=== PATIENT | female | born 1980 | race African-American/Black ===

== ENCOUNTER → 2016-09-30 | Outpatient (REF) | payer OTHER ==
[~2016-09-30] MED LIST: MIRA3350 PO; PNV-CAP5 PO; PREZ1TAB PO; TIVI1TAB PO; TRUVTAB3 PO
[2016-09-30 14:16] LABS: ALBUMIN 3.9 GM/DL (3.2-5.2); ALBUMIN/GLOBULIN RATIO 1.03 (1.00-1.93); ALKALINE PHOSPHATASE 59 U/L (45-117); ALT/SGPT 23 U/L (12-78); ANION GAP 10 MEQ/L (8-16); AST/SGOT 17 U/L (15-37); BILIRUBIN,TOTAL 0.5 MG/DL (0.2-1.0); BLOOD UREA NITROGEN 13 MG/DL (7-18); CALCIUM LEVEL 8.7 MG/DL (8.5-10.1); CARBON DIOXIDE LEVEL 28 MEQ/L (21-32); CHLORIDE LEVEL 102 MEQ/L (98-107); CHOLESTEROL LEVEL 193 MG/DL (<200); CREATININE FOR GFR 0.76 MG/DL (0.55-1.02); GLOMERULAR FILTRATION RATE > 60.0 (>60); GLUCOSE, FASTING 84 MG/DL (70-105); POTASSIUM SERUM 3.8 MEQ/L (3.5-5.1); SODIUM LEVEL 140 MEQ/L (136-145); TOTAL PROTEIN 7.7 GM/DL (6.4-8.2); TRIGLYCERIDES LEVEL 59 MG/DL (<150)
[2016-10-02 00:06] LABS: %CD3+CD4+CD8+ 0.8 % (Not Estab.); %CD3+CD4+CD8- 35.7 % (Not Estab.); %CD3+CD4-CD8+ 43.9 % (Not Estab.); %CD3+CD4-CD8- 1.4 % (Not Estab.); ABS CD3+CD4+CD8+ 14 /uL (Not Estab.); ABS CD3+CD4+CD8- 607 /uL (Not Estab.); ABS CD3+CD4-CD8+ 746 /uL (Not Estab.); ABS CD3+CD4-CD8- 24 /uL (Not Estab.); CD4/CD8 NYSDOH RATIO 0.81 (Not Estab.); Eosinophils 1 % (.); HCT 35.9 % (34.0-46.6); HGB 12.2 g/dL (11.1-15.9); Monocytes 8 % (.); Neutrophils 44 % (.); WBC 3.7 x10E3/uL (3.4-10.8)
== END | disposition home or self-care (01) ==
LOC: M SFHCPLAZ 10:57
PROVIDERS: ATTEND Internal Medicine Infectious Disease
DX: B20 Human immunodeficiency virus [HIV] disease (principal); Z11.3 Encounter for screening for infections with a predominantly sexual mode of transmission; Z13.220 Encounter for screening for lipoid disorders

== ENCOUNTER → 2016-10-09 | Outpatient (CLI) | payer OTHER ==
--- NOTE | 2016-10-09 13:50 | REP ---
MAXILLOFACIAL CT WITHOUT CONTRAST: HISTORY: Chronic runny nose. Moderate mucosal thickening is present in the right maxillary sinus. Mild mucosal thickening is present in the right ethmoid sinus. Minimal mucosal thickening is present in the left ethmoid and left maxillary sinuses. The remaining sinuses are clear. Mucosal thickening involves osteomeatal units. The middle and inferior nasal turbinates are partially paradoxical. The left middle nasal turbinate is hypoplastic. There is mild deviation of the nasal septum to the left. A spur is present arising from the left side of the nasal septum. This spur abuts the left middle nasal turbinate. The cribriform plate and medial john of the orbits and optic canals are intact. The carotid canals form a segment of the posterolateral john of the sphenoid sinus. The sphenoid sinus septa insert into the internal carotid canal john. IMPRESSION: Sinus mucosal thickening as described above. Signed by Michael Claudio MD 10/09/2016 02:12 P
== END | disposition home or self-care (01) ==
LOC: M RAD 11:33
PROVIDERS: ATTEND Family Medicine
DX: R93.0 Abnormal findings on diagnostic imaging of skull and head, not elsewhere classified (principal); R09.89 Other specified symptoms and signs involving the circulatory and respiratory systems

== ENCOUNTER 2017-03-04 23:44 | Emergency (ER) | payer OTHER ==
[~2017-03-04] VITALS: Ht 167.6 cm; Wt 81.8 kg
[~2017-03-04 23:44] MED LIST changes: +TRUVTAB PO; -TRUVTAB3 PO
[2017-03-05] MEDS ORDERED: NAPR500T PO (03:23)
[2017-03-05] MEDS: KETOROLAC 60 MG/2 ML VIAL (J1885) IM ONE (03:35)
[2017-03-05 03:39] VITALS: BP 123/77
--- NOTE | 2017-03-05 07:41 | REP ---
Clinical: Trauma . Technique: AP, lateral, bilateral oblique views right and left ankle . Findings: No acute fracture or dislocation. Skeletal structures and joint spaces are intact and normal. Ankle mortise appears stable. No subcutaneous emphysema or radiodense foreign body. Impression: Normal bilateral ankle radiograph series. Signed by Bony Schroeder MD 03/05/2017 07:33 A
--- NOTE | 2017-03-05 07:43 | REP ---
Clinical: Trauma. Technique: AP, lateral, bilateral oblique views left wrist . Findings: The carpal bones, surrounding osseous structures, soft tissues, and joint spaces are normal. There is no evidence for acute fracture or dislocation. No subcutaneous emphysema or radiodense foreign body. Impression: No acute fracture or dislocation Signed by Bony Schroeder MD 03/05/2017 07:34 A
== END 2017-03-05 04:00 | disposition home or self-care (01) ==
LOC: M ED 03-05 00:58
DX: S93.401A Sprain of unspecified ligament of right ankle, initial encounter (principal); M25.532 Pain in left wrist; W10.9XXA Fall (on) (from) unspecified stairs and steps, initial encounter; Y92.019 Unspecified place in single-family (private) house as the place of occurrence of the external cause; Y93.01 Activity, walking, marching and hiking; Y99.8 Other external cause status; Z79.899 Other long term (current) drug therapy
CPT/HCPCS: 73110; 73610; 96372; 99283; J1885

== ENCOUNTER → 2017-07-21 | Outpatient (REF) | payer OTHER ==
[~2017-07-21] MED LIST changes: +NAPR500T PO
[2017-07-21 14:43] LABS: ALBUMIN 3.8 GM/DL (3.2-5.2); ALBUMIN/GLOBULIN RATIO 0.97 (1.00-1.93); ALKALINE PHOSPHATASE 49 U/L (45-117); ALT/SGPT 17 U/L (12-78); ANION GAP 7 MEQ/L (8-16); AST/SGOT 14 U/L (7-37); BILIRUBIN,TOTAL 0.4 MG/DL (0.2-1.0); BLOOD UREA NITROGEN 7 MG/DL (7-18); CALCIUM LEVEL 8.7 MG/DL (8.5-10.1); CARBON DIOXIDE LEVEL 27 MEQ/L (21-32); CHLORIDE LEVEL 106 MEQ/L (98-107); CREATININE FOR GFR 0.55 MG/DL (0.55-1.02); GLOMERULAR FILTRATION RATE > 60.0 (>60); GLUCOSE, FASTING 103 MG/DL (70-105); POTASSIUM SERUM 3.8 MEQ/L (3.5-5.1); SODIUM LEVEL 140 MEQ/L (136-145); TOTAL PROTEIN 7.7 GM/DL (6.4-8.2)
[2017-07-22 14:14] LABS: Eosinophils 3 % (Not Estab.); HCT 36.1 % (34.0-46.6); HGB 12.1 g/dL (11.1-15.9); Monocytes 9 % (Not Estab.); Neutrophils 44 % (Not Estab.); WBC 3.7 x10E3/uL (3.4-10.8)
== END ==
LOC: M SFHCPLAZ 10:33
PROVIDERS: ATTEND Internal Medicine Infectious Disease
DX: B20 Human immunodeficiency virus [HIV] disease (principal)

== ENCOUNTER → 2017-11-18 | Outpatient (REF) | payer OTHER ==
[2017-11-18 13:47] LABS: ALBUMIN 3.9 GM/DL (3.2-5.2); ALBUMIN/GLOBULIN RATIO 1.03 (1.00-1.93); ALKALINE PHOSPHATASE 57 U/L (45-117); ALT/SGPT 16 U/L (12-78); ANION GAP 7 MEQ/L (8-16); AST/SGOT 14 U/L (7-37); BILIRUBIN,TOTAL 0.5 MG/DL (0.2-1.0); BLOOD UREA NITROGEN 17 MG/DL (7-18); CALCIUM LEVEL 8.8 MG/DL (8.5-10.1); CARBON DIOXIDE LEVEL 28 MEQ/L (21-32); CHLORIDE LEVEL 104 MEQ/L (98-107); CHOLESTEROL LEVEL 210 MG/DL (<200); CHOLESTEROL RISK RATIO 3.281 (<5); CREATININE FOR GFR 0.79 MG/DL (0.55-1.30); GLOMERULAR FILTRATION RATE > 60.0 (>60); GLUCOSE, FASTING 101 MG/DL (70-100); HDL CHOLESTEROL 64 MG/DL (>40); LDL CHOLESTEROL 132.6 MG/DL (<100); NON-HDL-C 146 MG/DL; POTASSIUM SERUM 4.1 MEQ/L (3.5-5.1); SODIUM LEVEL 139 MEQ/L (136-145); TOTAL PROTEIN 7.7 GM/DL (6.4-8.2); TRIGLYCERIDES LEVEL 67 MG/DL (<150)
[2017-11-18 18:18] LABS: APPEARANCE, URINE CLEAR (CLEAR); BACTERIA, URINE AUTO NEGATIVE (NEGATIVE); BILIRUBIN, URINE AUTO NEGATIVE (NEGATIVE); BLOOD, URINE BLOOD NEGATIVE (NEGATIVE); COLOR, URINE YELLOW (YELLOW); GLUCOSE, URINE (UA) AUTO NEGATIVE (NEGATIVE); KETONE, URINE AUTO NEGATIVE (NEGATIVE); LEUKOCYTE ESTERASE, URINE AUTO NEGATIVE (NEGATIVE); MUCUS, URINE SMALL (NEGATIVE); NITRITE, URINE AUTO NEGATIVE (NEGATIVE); PROTEIN, URINE AUTO NEGATIVE (NEGATIVE); RBC, URINE AUTO 1 /HPF (0-3); SPECIFIC GRAVITY URINE AUTO 1.024 (1.002-1.035); SQUAMOUS EPITHELIAL CELL UR AU 1 /HPF (0-6); UROBILINOGEN, URINE AUTO 0.2 mg/dL (0.0-2.0); WBC, URINE AUTO 2 /HPF (0-3)
[2017-11-18 19:34] LABS: CHLAMYDIA DNA AMPLIFICATION NEGATIVE (NEGATIVE); GC DNA AMPLIFICATION NEGATIVE (NEGATIVE)
[2017-11-19 10:43] LABS: HEPATITIS B SURFACE ANTIBODY NEGATIVE (POSITIVE)
== END ==
LOC: M SFHCPLAZ 11:11
DX: B20 Human immunodeficiency virus [HIV] disease (principal); Z11.3 Encounter for screening for infections with a predominantly sexual mode of transmission; Z13.220 Encounter for screening for lipoid disorders

== ENCOUNTER → 2018-08-11 | Outpatient (REF) | payer OTHER ==
[2018-08-11 18:55] LABS: ALBUMIN 3.9 GM/DL (3.2-5.2); ALBUMIN/GLOBULIN RATIO 0.93 (1.00-1.93); ALKALINE PHOSPHATASE 57 U/L (45-117); ALT/SGPT 20 U/L (12-78); ANION GAP 9 MEQ/L (8-16); AST/SGOT 19 U/L (7-37); BILIRUBIN,TOTAL 0.6 MG/DL (0.2-1.0); BLOOD UREA NITROGEN 13 MG/DL (7-18); CARBON DIOXIDE LEVEL 25 MEQ/L (21-32); CHLORIDE LEVEL 102 MEQ/L (98-107); CREATININE FOR GFR 0.74 MG/DL (0.55-1.30); GLOMERULAR FILTRATION RATE > 60.0 (>60); GLUCOSE, FASTING 91 MG/DL (70-100); POTASSIUM SERUM 4.1 MEQ/L (3.5-5.1); SODIUM LEVEL 136 MEQ/L (136-145); TOTAL PROTEIN 8.1 GM/DL (6.4-8.2)
[2018-08-13 14:24] LABS: % CD8 Pos Lymph 34.6 % (12.0-35.5); %CD4 Pos Lymphs 43.2 % (30.8-58.5); ABS Eosinophils 0.1 x10E3/uL (0.0-0.4); ABS Lymphs 1.6 x10E3/uL (0.7-3.1); ABS Monocytes 0.3 x10E3/uL (0.1-0.9); ABS Neutophils 2.3 x10E3/uL (1.4-7.0); Abs CD4 Helper 691 /uL (359-1519); Abs CD8 Suppres 554 /uL (109-897); CD4/CD8 Ratio 1.25 (0.92-3.72); Eosinophils 1 % (Not Estab.); HCT 37.1 % (34.0-46.6); HGB 12.4 g/dL (11.1-15.9); Immature Grans 0 % (Not Estab.); Lymphocytes 38 % (Not Estab.); MCH 30.8 pg (26.6-33.0); MCHC 33.4 g/dL (31.5-35.7); MCV 92 fL (79-97); Monocytes 7 % (Not Estab.); Neutrophils 53 % (Not Estab.); Platelets 267 x10E3/uL (150-379); RBC 4.02 x10E6/uL (3.77-5.28); RDW 12.9 % (12.3-15.4); WBC 4.3 x10E3/uL (3.4-10.8)
== END ==
LOC: M SFHCPLAZ 14:06
DX: B20 Human immunodeficiency virus [HIV] disease (principal)

== ENCOUNTER → 2018-09-15 | Outpatient (CLI) | payer OTHER ==
[~2018-09-15] MED LIST changes: +NAPR-50 PO; -NAPR500T PO
--- NOTE | 2018-09-15 17:52 | REPMRS ---
Patient History The patient states she has not had a clinical breast exam in over a year. Patient had first child at age 34. No known family history of cancer. Taking hormonal contraceptives for 3 years. Digital Woman Screen Mammo: September 15, 2018 - Exam #: [id number] Bilateral CC and MLO view(s) were taken. Technologist: Alexa Nicole, Technologist FINDINGS: There are scattered fibroglandular densities. There is no evidence of dominant mass, architectural distortion, or clustered microcalcification typical of malignancy.. Assessment: BI-RADS/ACR category 1 mammogram. Negative. Recommendation Routine screening mammogram of both breasts in 1 year (for women over age 40). This patient's Lifetime Breast Cancer RIsk is estimated at 13.6 %. This mammogram was interpreted with the aid of an FDA-approved computer-aided dectection system. Electronically Signed By: Tito Kyle MD 09/15/18 [id number]
== END ==
LOC: M WHC 14:30
PROVIDERS: ATTEND Family Medicine
DX: Z12.11 Encounter for screening for malignant neoplasm of colon (principal)

== ENCOUNTER → 2019-01-19 | Outpatient (REF) | payer OTHER ==
[~2019-01-19] MED LIST changes: +BACT800T5 PO; -NAPR-50 PO; +NAPR-837 PO
[2019-01-19 13:25] LABS: ALT/SGPT 20 U/L (12-78); BILIRUBIN,TOTAL 0.5 MG/DL (0.2-1.0); BLOOD UREA NITROGEN 10 MG/DL (7-18); CARBON DIOXIDE LEVEL 28 MEQ/L (21-32); CHLORIDE LEVEL 103 MEQ/L (98-107); CHOLESTEROL LEVEL 255 MG/DL (<200); CHOLESTEROL RISK RATIO 2.741 (<5); CREATININE FOR GFR 0.76 MG/DL (0.55-1.30); GLOMERULAR FILTRATION RATE > 60.0 (>60); GLUCOSE, FASTING 93 MG/DL (70-100); HDL CHOLESTEROL 93 MG/DL (>40); LDL CHOLESTEROL 153 MG/DL (<100); NON-HDL-C 162 MG/DL; SODIUM LEVEL 138 MEQ/L (136-145); TOTAL PROTEIN 7.3 GM/DL (6.4-8.2); TRIGLYCERIDES LEVEL 47 MG/DL (<150)
[2019-01-19 13:27] LABS: APPEARANCE, URINE CLEAR (CLEAR); BACTERIA, URINE AUTO NEGATIVE (NEGATIVE); BILIRUBIN, URINE AUTO NEGATIVE (NEGATIVE); BLOOD, URINE BLOOD NEGATIVE (NEGATIVE); COLOR, URINE YELLOW (YELLOW); GLUCOSE, URINE (UA) AUTO NEGATIVE (NEGATIVE); KETONE, URINE AUTO NEGATIVE (NEGATIVE); LEUKOCYTE ESTERASE, URINE AUTO NEGATIVE (NEGATIVE); NITRITE, URINE AUTO NEGATIVE (NEGATIVE); PROTEIN, URINE AUTO NEGATIVE (NEGATIVE); RBC, URINE AUTO 0 /HPF (0-3); SPECIFIC GRAVITY URINE AUTO 1.019 (1.002-1.035); SQUAMOUS EPITHELIAL CELL UR AU 1 /HPF (0-6); UROBILINOGEN, URINE AUTO 0.2 mg/dL (0.0-2.0); WBC, URINE AUTO 0 /HPF (0-3)
[2019-01-22 00:06] LABS: % CD8 Pos Lymph 38.1 % (12.0-35.5); %CD4 Pos Lymphs 39.2 % (30.8-58.5); ABS Lymphs 1.3 x10E3/uL (0.7-3.1); ABS Monocytes 0.3 x10E3/uL (0.1-0.9); ABS Neutophils 1.3 x10E3/uL (1.4-7.0); Abs CD4 Helper 510 /uL (359-1519); Abs CD8 Suppres 495 /uL (109-897); CD4/CD8 Ratio 1.03 (0.92-3.72); Eosinophils 1 % (Not Estab.); HCT 35.2 % (34.0-46.6); HIV-1 RNA PCR QUANT 2 LC550285 <20 copies/mL (.); Immature Grans 0 % (Not Estab.); Lymphocytes 44 % (Not Estab.); MCHC 34.1 g/dL (31.5-35.7); MCV 91 fL (79-97); Monocytes 10 % (Not Estab.); Neutrophils 45 % (Not Estab.); Platelets 204 x10E3/uL (150-450); RBC 3.87 x10E6/uL (3.77-5.28); WBC 2.9 x10E3/uL (3.4-10.8)
== END ==
LOC: M SFHCPLAZ 09:29
PROVIDERS: ATTEND Internal Medicine Infectious Disease
DX: B20 Human immunodeficiency virus [HIV] disease (principal); E78.00 Pure hypercholesterolemia, unspecified
CPT/HCPCS: 36415; 80053; 80061; 81001; 86360; 87536; G0463

== ENCOUNTER → 2019-01-28 | Outpatient (CLI) | payer OTHER ==
--- NOTE | 2019-01-28 09:56 | REP ---
MAXILLOFACIAL CT WITHOUT CONTRAST: HISTORY: Allergic sinusitis. COMPARISON: 10/09/2016 Minimal mucosal thickening is present in the right maxillary sinus. The remaining sinuses are clear. The ostiomeatal units are patent. The middle and inferior nasal turbinates are partially paradoxical. The left middle nasal turbinate hypoplastic. There is mild deviation of the nasal septum to the left. A spur is present arising from the left side of the nasal septum. The cribriform plates, medial john of the orbits and optic canals are intact. The carotid canals form a segment of the posterolateral john of the sphenoid sinus. The sphenoid sinus septa insert into the internal carotid canal john. IMPRESSION: Sinus mucosal thickening as described above. Electronically Signed by Michael Claudio MD 01/28/2019 10:03 A
== END ==
LOC: M RAD 09:20
PROVIDERS: ATTEND Internal Medicine Infectious Disease
DX: J30.9 Allergic rhinitis, unspecified (principal); R51 Headache; J32.0 Chronic maxillary sinusitis

== ENCOUNTER 2019-01-30 21:37 | Emergency (ER) | payer OTHER, SELFPAY ==
[~2019-01-30] VITALS: Ht 167.6 cm; Wt 79.1 kg
[~2019-01-30 21:37] MED LIST changes: -BACT800T5 PO
[2019-01-30] MEDS ORDERED: LIDOCAINE 1% MDV 20ML VIAL INFIL ONE (22:30)
[2019-01-30 22:35] LABS: BASO % 0.4 % (0.0-1.0); EOS # 0.1 10^3/uL (0.0-0.50); EOS % 1.5 % (0.0-3.0); HEMATOCRIT 32.3 % (36.0-47.0); LYMPH # 1.6 10^3/uL (1.5-4.5); LYMPH % 34.8 % (24.0-44.0); MEAN CORPUSCULAR HEMOGLOBIN 31.7 pg (27.0-33.0); MEAN CORPUSCULAR HGB CONC 34.1 g/dl (32.0-36.5); MEAN CORPUSCULAR VOLUME 93.1 fl (80.0-96.0); MONO # 0.4 10^3/uL (0.0-0.8); MONO % 7.8 % (0.0-5.0); NEUTROPHILS # 2.5 10^3/uL (1.8-7.7); NEUTROPHILS % 55.3 % (36.0-66.0); PLATELET COUNT, AUTOMATED 180 10^3/uL (150-450); RED BLOOD COUNT 3.47 10^6/uL (4.00-5.40); WHITE BLOOD COUNT 4.6 10^3/uL (4.0-10.0)
[2019-01-30 22:53] LABS: BLOOD UREA NITROGEN 11 MG/DL (7-18); CALCIUM LEVEL 8.8 MG/DL (8.5-10.1); CARBON DIOXIDE LEVEL 28 MEQ/L (21-32); CHLORIDE LEVEL 103 MEQ/L (98-107); GLOMERULAR FILTRATION RATE > 60.0 (>60); GLUCOSE, FASTING 103 MG/DL (70-100); POTASSIUM SERUM 3.9 MEQ/L (3.5-5.1); SODIUM LEVEL 139 MEQ/L (136-145)
[2019-01-30] MEDS ORDERED: BACT800T5 PO (23:23)
[2019-01-30] MEDS ORDERED: IBUPROFEN 800 MG TAB PO ONE (23:30)
[2019-01-30] MEDS ORDERED: BACTRIM 160MG/800MG DS TAB PO ONE (23:45)
[2019-01-30 23:53] VITALS: BP 126/68
== END 2019-01-30 23:56 | disposition home or self-care (01) ==
LOC: M ED 21:37
DX: N75.1 Abscess of Bartholin's gland (principal); B20 Human immunodeficiency virus [HIV] disease; Z79.899 Other long term (current) drug therapy

== ENCOUNTER 2019-02-24 13:45 | Emergency (ER) | payer BC, OTHER, SELFPAY ==
[~2019-02-24] VITALS: Ht 167.6 cm; Wt 81.4 kg
[~2019-02-24 13:45] MED LIST changes: +BACT800T5 PO
--- NOTE | 2019-02-24 14:39 | REP ---
Clinical: Right hip pain with recent fall. Technique: Neutral and frog lateral views of the right hip. Findings: No acute fracture dislocation. Skeletal structures, joint spaces, and surrounding soft tissues are normal for age. Impression: No acute fracture or dislocation. Electronically Signed by Bony Schroeder MD 02/24/2019 02:31 P
[2019-02-24] MEDS ORDERED: NAPR-837 PO (15:54)
[2019-02-24 15:57] VITALS: BP 125/66
== END 2019-02-24 16:00 | disposition home or self-care (01) ==
LOC: M ED 13:45
DX: S70.01XA Contusion of right hip, initial encounter (principal); W10.9XXA Fall (on) (from) unspecified stairs and steps, initial encounter; Y92.099 Unspecified place in other non-institutional residence as the place of occurrence of the external cause; Y93.9 Activity, unspecified; Y99.9 Unspecified external cause status; B20 Human immunodeficiency virus [HIV] disease; I10 Essential (primary) hypertension; Z79.899 Other long term (current) drug therapy

== ENCOUNTER → 2019-06-24 | Outpatient (REF) | payer OTHER ==
[2019-06-24 14:12] LABS: ALBUMIN 4.1 GM/DL (3.2-5.2); ALT/SGPT 20 U/L (12-78); BILIRUBIN,TOTAL 0.5 MG/DL (0.2-1.0); BLOOD UREA NITROGEN 13 MG/DL (7-18); CALCIUM LEVEL 9.4 MG/DL (8.5-10.1); CARBON DIOXIDE LEVEL 28 MEQ/L (21-32); CHLORIDE LEVEL 102 MEQ/L (98-107); CREATININE FOR GFR 0.84 MG/DL (0.55-1.30); GLOMERULAR FILTRATION RATE > 60.0 (>60); GLUCOSE, FASTING 89 MG/DL (70-100); POTASSIUM SERUM 3.8 MEQ/L (3.5-5.1); SODIUM LEVEL 137 MEQ/L (136-145); TOTAL PROTEIN 7.9 GM/DL (6.4-8.2)
[2019-06-29 00:06] LABS: % CD8 Pos Lymph 36.9 % (12.0-35.5); %CD4 Pos Lymphs 41.3 % (30.8-58.5); ABS Lymphs 1.9 x10E3/uL (0.7-3.1); ABS Monocytes 0.2 x10E3/uL (0.1-0.9); ABS Neutophils 1.3 x10E3/uL (1.4-7.0); Abs CD4 Helper 785 /uL (359-1519); Abs CD8 Suppres 701 /uL (109-897); CD4/CD8 Ratio 1.12 (0.92-3.72); Eosinophils 1 % (Not Estab.); HCT 36.5 % (34.0-46.6); HIV-1 RNA PCR QUANT 2 LC550285 50 copies/mL (.); HIV-1 RNA PCR QUANT 3 LC550285 1.699 (.); Immature Grans 0 % (Not Estab.); Lymphocytes 54 % (Not Estab.); MCH 29.6 pg (26.6-33.0); MCHC 32.9 g/dL (31.5-35.7); MCV 90 fL (79-97); Monocytes 7 % (Not Estab.); Neutrophils 37 % (Not Estab.); Platelets 273 x10E3/uL (150-450); RBC 4.06 x10E6/uL (3.77-5.28); WBC 3.5 x10E3/uL (3.4-10.8)
== END ==
LOC: M SFHCPLAZ 11:54
PROVIDERS: ATTEND Internal Medicine Infectious Disease
DX: B20 Human immunodeficiency virus [HIV] disease (principal)

== ENCOUNTER → 2019-11-11 | Outpatient (REF) | payer OTHER ==
[2019-11-11 15:24] LABS: CHLAMYDIA DNA AMPLIFICATION NEGATIVE (NEGATIVE); GC DNA AMPLIFICATION NEGATIVE (NEGATIVE)
== END ==
LOC: M PLALAB 10:13
PROVIDERS: ATTEND Nurse Practitioner Women's Health
DX: Z12.4 Encounter for screening for malignant neoplasm of cervix (principal)

== ENCOUNTER → 2020-01-25 | Outpatient (REF) | payer OTHER ==
[2020-01-25 14:16] LABS: APPEARANCE, URINE CLEAR (CLEAR); BACTERIA, URINE AUTO NEGATIVE (NEGATIVE); BILIRUBIN, URINE AUTO NEGATIVE (NEGATIVE); BLOOD, URINE BLOOD NEGATIVE (NEGATIVE); COLOR, URINE YELLOW (YELLOW); GLUCOSE, URINE (UA) AUTO NEGATIVE (NEGATIVE); KETONE, URINE AUTO NEGATIVE (NEGATIVE); LEUKOCYTE ESTERASE, URINE AUTO NEGATIVE (NEGATIVE); MUCUS, URINE SMALL (NEGATIVE); NITRITE, URINE AUTO NEGATIVE (NEGATIVE); PROTEIN, URINE AUTO NEGATIVE (NEGATIVE); RBC, URINE AUTO 0 /HPF (0-3); SPECIFIC GRAVITY URINE AUTO 1.018 (1.002-1.035); SQUAMOUS EPITHELIAL CELL UR AU 1 /HPF (0-6); UROBILINOGEN, URINE AUTO 0.2 mg/dL (0.0-2.0); WBC, URINE AUTO 0 /HPF (0-3)
[2020-01-25 14:44] LABS: ALBUMIN 3.9 GM/DL (3.2-5.2); ALT/SGPT 25 U/L (12-78); BILIRUBIN,TOTAL 0.5 MG/DL (0.2-1.0); BLOOD UREA NITROGEN 9 MG/DL (7-18); CALCIUM LEVEL 8.7 MG/DL (8.5-10.1); CARBON DIOXIDE LEVEL 28 MEQ/L (21-32); CHLORIDE LEVEL 103 MEQ/L (98-107); CHOLESTEROL LEVEL 277 MG/DL (<200); CHOLESTEROL RISK RATIO 2.742 (<5); GLOMERULAR FILTRATION RATE > 60.0 (>60); GLUCOSE, FASTING 90 MG/DL (70-100); HDL CHOLESTEROL 101 MG/DL (>40); LDL CHOLESTEROL 161 MG/DL (<100); NON-HDL-C 176 MG/DL; POTASSIUM SERUM 4.3 MEQ/L (3.5-5.1); SODIUM LEVEL 135 MEQ/L (136-145); TOTAL PROTEIN 7.8 GM/DL (6.4-8.2); TRIGLYCERIDES LEVEL 74 MG/DL (<150)
[2020-01-25 15:23] LABS: HEMOGLOBIN A1c 5.7 %
[2020-01-28 23:07] LABS: % CD8 Pos Lymph 40.4 % (12.0-35.5); %CD4 Pos Lymphs 39.6 % (30.8-58.5); ABS Lymphs 1.4 x10E3/uL (0.7-3.1); ABS Monocytes 0.3 x10E3/uL (0.1-0.9); ABS Neutophils 1.2 x10E3/uL (1.4-7.0); Abs CD4 Helper 554 /uL (359-1519); Abs CD8 Suppres 566 /uL (109-897); CD4/CD8 Ratio 0.98 (0.92-3.72); Eosinophils 1 % (Not Estab.); HCT 34.9 % (34.0-46.6); HGB 11.3 g/dL (11.1-15.9); HIV-1 RNA PCR QUANT 2 LC550285 <20 copies/mL (.); Immature Grans 0 % (Not Estab.); Lymphocytes 48 % (Not Estab.); MCH 30.7 pg (26.6-33.0); MCHC 32.4 g/dL (31.5-35.7); MCV 95 fL (79-97); Monocytes 10 % (Not Estab.); Neutrophils 41 % (Not Estab.); Platelets 255 x10E3/uL (150-450); RBC 3.68 x10E6/uL (3.77-5.28)
== END ==
LOC: M SFHCPLAZ 11:51
PROVIDERS: ATTEND Internal Medicine Infectious Disease
DX: B20 Human immunodeficiency virus [HIV] disease (principal); E78.00 Pure hypercholesterolemia, unspecified

== ENCOUNTER 2020-04-10 10:46 | Day surgery (SDC) | payer OTHER ==
[~2020-04-10 10:46] MED LIST changes: +BALANCED SALT IRRIGATION SOLUTION 500ML BAG (FOR OR EYE MACHINE) As Ordered ONE; +LIDOCAINE 1% SDV 5ML VIAL As Ordered ONE; +POVIDONE-IODINE 5% OPHTH PREP SOL 30ML As Ordered ONE
[2020-04-10] MEDS ORDERED: LIDOCAINE 3.5 % 1ML OPHTH TOPICAL GEL ONE (11:04)
[2020-04-10] MEDS ORDERED: LIDOCAINE 3.5 % 1ML OPHTH TOPICAL GEL As Ordered ONE (11:04)
[2020-04-10] MEDS ORDERED: HEALON DUET PRO(HEALON 10MG/ML 0.55ML & HEALON ENDOCOAT 30MG/ML 0.85ML) As Ordered ONE (11:49)
[2020-04-10] MEDS ORDERED: MIDAZOLAM INJ 2MG/2ML VIAL (J2250 PER 1MG) As Ordered ONE (12:17)
[2020-04-10] MEDS ORDERED: fentaNYL 100 MCG/2 ML INJECTION (J3010) As Ordered ONE (12:17)
[2020-04-10] MEDS ORDERED: LIDOCAINE PRES-FREE 2% 10ML AMP As Ordered ONE (12:45)
[2020-04-10] MEDS ORDERED: LIDOCAINE 2% W/EPINEPHRINE 20ML VIAL **PRES FREE As Ordered ONE (12:47)
[2020-04-10] MEDS ORDERED: TOBRADEX OPHTH OINT 3.5 GM As Ordered ONE (13:09)
--- NOTE | 2020-06-01 10:58 | RO ---
DATE OF OPERATION: 04/10/2020 PREOPERATIVE DIAGNOSIS: Pterygium nasal, right eye. POSTOPERATIVE DIAGNOSIS: Pterygium nasal, right eye. PROCEDURE: Excision of pterygium and use of amniotic membrane graft. SURGEON: Crista Vega MD. ELECTRICAL ESTIMATOR: ANESTHESIA: DESCRIPTION OF PROCEDURE: Patient was prepped and draped in usual fashion. The pterygium was examined and the head was excised from the cornea with a crescent knife. The pterygium was then cut away from the conjunctiva and sent for pathology. Any bleeding was controlled. The sclera was cleaned down to bare sclera. An amniotic membrane graft, frozen graft, was thawed and cut to size and placed over the conjunctival defect and then glued in place with Tisseel adhesive adhesive. Tobradex ointment was then applied and a patch was placed after the lid speculum was removed. The patient tolerated the procedure well and went to the recovery room in stable condition. LORETO
== END 2020-04-10 14:09 | disposition home or self-care (01) ==
LOC: M SDC 10:46
PROVIDERS: ATTEND Ophthalmology
DX: H11.001 Unspecified pterygium of right eye (principal); B20 Human immunodeficiency virus [HIV] disease; Z79.899 Other long term (current) drug therapy
CPT/HCPCS: 65426; 88304; C1762; J2250; J3010

== ENCOUNTER → 2020-07-06 | Outpatient (REF) | payer OTHER ==
[~2020-07-06] MED LIST changes: -BALANCED SALT IRRIGATION SOLUTION 500ML BAG (FOR OR EYE MACHINE) As Ordered ONE; -LIDOCAINE 1% SDV 5ML VIAL As Ordered ONE; -POVIDONE-IODINE 5% OPHTH PREP SOL 30ML As Ordered ONE
[2020-07-06 14:43] LABS: ALT/SGPT 24 U/L (12-78); BILIRUBIN,TOTAL 0.5 MG/DL (0.2-1.0); BLOOD UREA NITROGEN 11 MG/DL (7-18); CALCIUM LEVEL 9.4 MG/DL (8.5-10.1); CARBON DIOXIDE LEVEL 27 MEQ/L (21-32); CHLORIDE LEVEL 104 MEQ/L (98-107); CREATININE FOR GFR 0.79 MG/DL (0.55-1.30); GLOMERULAR FILTRATION RATE > 60.0 (>60); GLUCOSE, FASTING 99 MG/DL (70-100); POTASSIUM SERUM 4.4 MEQ/L (3.5-5.1); SODIUM LEVEL 137 MEQ/L (136-145); TOTAL PROTEIN 8.1 GM/DL (6.4-8.2)
[2020-07-06 15:09] LABS: HEMOGLOBIN A1c 5.5 %
[2020-07-10 11:07] LABS: % CD8 Pos Lymph 40.7 % (12.0-35.5); %CD4 Pos Lymphs 37.5 % (30.8-58.5); ABS Lymphs 1.3 x10E3/uL (0.7-3.1); ABS Monocytes 0.3 x10E3/uL (0.1-0.9); ABS Neutophils 1.4 x10E3/uL (1.4-7.0); Abs CD4 Helper 488 /uL (359-1519); Abs CD8 Suppres 529 /uL (109-897); CD4/CD8 Ratio 0.92 (0.92-3.72); Eosinophils 1 % (Not Estab.); HCT 36.4 % (34.0-46.6); HGB 12.1 g/dL (11.1-15.9); HIV-1 RNA PCR QUANT 2 LC550285 <20 copies/mL (.); Immature Grans 0 % (Not Estab.); Lymphocytes 43 % (Not Estab.); MCH 30.8 pg (26.6-33.0); MCHC 33.2 g/dL (31.5-35.7); MCV 93 fL (79-97); Monocytes 9 % (Not Estab.); Neutrophils 46 % (Not Estab.); Platelets 233 x10E3/uL (150-450); RBC 3.93 x10E6/uL (3.77-5.28); RDW 11.7 % (11.7-15.4)
== END ==
LOC: M SFHCPLAZ 10:27
PROVIDERS: ATTEND Internal Medicine Infectious Disease
DX: B20 Human immunodeficiency virus [HIV] disease (principal); E78.00 Pure hypercholesterolemia, unspecified

== ENCOUNTER 2020-12-17 03:12 | Emergency (ER) | payer OTHER ==
[~2020-12-17] VITALS: Ht 167.6 cm; Wt 84.4 kg
[2020-12-17 03:13] VITALS: BP 133/83
[2020-12-18] MEDS ORDERED: GENV1TAB (11:26)
[2020-12-18] MEDS ORDERED: CYCL-707 PO ×2 (13:20→14:03)
[2020-12-18] MEDS ORDERED: NAPR-837 PO ×2 (13:20→14:03)
== END 2020-12-17 04:56 | disposition left against medical advice (07) ==
LOC: M ED 03:12
DX: Z53.21 Procedure and treatment not carried out due to patient leaving prior to being seen by health care provider (principal)

== ENCOUNTER 2020-12-18 11:14 | Emergency (ER) | payer OTHER ==
[~2020-12-18] VITALS: Ht 167.6 cm; Wt 83.3 kg
[2020-12-18] MEDS ORDERED: GENV1TAB (11:26)
--- NOTE | 2020-12-18 11:43 | REP ---
INDICATION: PAIN DECREASED ROM COMPARISON: None. TECHNIQUE: Internal rotation, external rotation, and Y view. FINDINGS: No acute fracture or dislocation. The acromioclavicular and glenohumeral joints are intact. No periarticular calcifications or degenerative changes are appreciated. Sub acromial space is normal. Surrounding soft tissues are unremarkable. IMPRESSION: Normal age-appropriate right shoulder radiographs. <Electronically signed by Bony Schroeder > 12/18/20 2450
--- NOTE | 2020-12-18 13:04 | REP ---
INDICATION: SOB; increasing dyspnea COMPARISON: None. TECHNIQUE: PA and lateral. FINDINGS: The mediastinum and cardiac silhouette are normal. The lung kaminski are clear and without acute consolidation, effusion, or pneumothorax. The skeletal structures are intact and normal. IMPRESSION: No acute cardiopulmonary process. <Electronically signed by Bony Schroeder > 12/18/20 1300
[2020-12-18] MEDS ORDERED: CYCL-707 PO ×2 (13:20→14:03)
[2020-12-18] MEDS ORDERED: NAPR-837 PO ×2 (13:20→14:03)
[2020-12-18 13:42] VITALS: BP 128/76
== END 2020-12-18 14:03 | disposition home or self-care (01) ==
LOC: M ED 11:14
DX: S43.401A Unspecified sprain of right shoulder joint, initial encounter (principal); S46.011A Strain of muscle(s) and tendon(s) of the rotator cuff of right shoulder, initial encounter; X50.0XXA Overexertion from strenuous movement or load, initial encounter; Y92.89 Other specified places as the place of occurrence of the external cause; Y93.89 Activity, other specified; Y99.0 Civilian activity done for income or pay; B20 Human immunodeficiency virus [HIV] disease; Z79.899 Other long term (current) drug therapy

== ENCOUNTER → 2021-01-02 | Outpatient (REF) | payer OTHER ==
[~2021-01-02] MED LIST changes: +CYCL-707 PO; +GENV1TAB
[2021-01-02 12:12] LABS: ALBUMIN 4.2 GM/DL (3.2-5.2); ALT/SGPT 24 U/L (12-78); BILIRUBIN,TOTAL 0.4 MG/DL (0.2-1.0); BLOOD UREA NITROGEN 9 MG/DL (7-18); CALCIUM LEVEL 9.5 MG/DL (8.5-10.1); CARBON DIOXIDE LEVEL 30 MEQ/L (21-32); CHLORIDE LEVEL 100 MEQ/L (98-107); CHOLESTEROL LEVEL 288 MG/DL (<200); CREATININE FOR GFR 0.77 MG/DL (0.55-1.30); GLOMERULAR FILTRATION RATE > 60.0 (>60); GLUCOSE, FASTING 100 MG/DL (70-100); HDL CHOLESTEROL 77 MG/DL (>40); LDL CHOLESTEROL 189 MG/DL (<100); NON-HDL-C 211 MG/DL; SODIUM LEVEL 135 MEQ/L (136-145); TRIGLYCERIDES LEVEL 110 MG/DL (<150)
[2021-01-04 01:07] LABS: %CD4 Pos Lymphs 38.8 % (30.8-58.5); ABS Lymphs 1.5 x10E3/uL (0.7-3.1); ABS Monocytes 0.3 x10E3/uL (0.1-0.9); ABS Neutophils 0.9 x10E3/uL (1.4-7.0); Abs CD4 Helper 582 /uL (359-1519); Abs CD8 Suppres 615 /uL (109-897); CD4/CD8 Ratio 0.95 (0.92-3.72); Eosinophils 2 % (Not Estab.); HCT 38.2 % (34.0-46.6); HGB 13.1 g/dL (11.1-15.9); HIV-1 RNA PCR QUANT 2 LC550285 <20 copies/mL (.); Immature Grans 0 % (Not Estab.); Lymphocytes 54 % (Not Estab.); MCH 31.8 pg (26.6-33.0); MCHC 34.3 g/dL (31.5-35.7); MCV 93 fL (79-97); Monocytes 10 % (Not Estab.); Neutrophils 33 % (Not Estab.); Platelets 173 x10E3/uL (150-450); RBC 4.12 x10E6/uL (3.77-5.28); RDW 11.4 % (11.7-15.4); WBC 2.6 x10E3/uL (3.4-10.8)
== END ==
LOC: M SFHCPLAZ 10:01
PROVIDERS: ATTEND Internal Medicine Infectious Disease
DX: B20 Human immunodeficiency virus [HIV] disease (principal); E78.00 Pure hypercholesterolemia, unspecified

== ENCOUNTER → 2021-05-02 | Outpatient (REF) | payer OTHER ==
[~2021-05-02] MED LIST changes: +EMTR1TAB16 PO; -TRUVTAB PO
== END ==
LOC: M SFHCWAGY 18:44
PROVIDERS: ATTEND Nurse Practitioner Women's Health
DX: Z12.4 Encounter for screening for malignant neoplasm of cervix (principal)

== ENCOUNTER → 2021-06-14 | Outpatient (CLI) | payer OTHER ==
[2021-06-14 14:19] LABS: ALBUMIN 3.7 GM/DL (3.2-5.2); ALT/SGPT 25 U/L (12-78); BILIRUBIN,TOTAL 0.4 MG/DL (0.2-1.0); BLOOD UREA NITROGEN 10 MG/DL (7-18); CALCIUM LEVEL 9.1 MG/DL (8.5-10.1); CARBON DIOXIDE LEVEL 30 MEQ/L (21-32); CHLORIDE LEVEL 105 MEQ/L (98-107); CHOLESTEROL LEVEL 244 MG/DL (<200); CHOLESTEROL RISK RATIO 3.253 (<5); CREATININE FOR GFR 0.85 MG/DL (0.55-1.30); GLOMERULAR FILTRATION RATE > 60.0 (>60); GLUCOSE, FASTING 92 MG/DL (70-100); HDL CHOLESTEROL 75 MG/DL (>40); LDL CHOLESTEROL 151 MG/DL (<100); NON-HDL-C 169 MG/DL; SODIUM LEVEL 138 MEQ/L (136-145); TOTAL PROTEIN 7.6 GM/DL (6.4-8.2); TRIGLYCERIDES LEVEL 88 MG/DL (<150)
== END ==
LOC: M PLALAB 09:06
PROVIDERS: ATTEND Internal Medicine Infectious Disease
DX: B20 Human immunodeficiency virus [HIV] disease (principal)

== ENCOUNTER 2021-07-23 19:51 | Emergency (ER) | payer OTHER ==
[~2021-07-23] VITALS: Ht 167.6 cm; Wt 78.2 kg
--- OUTSIDE RECORDS SUMMARY | 2021-07-23 19:59 | CCD ---
Author Author [facility] Organization [facility] Address Unknown Phone Unavailable Care Team Providers Care Property Handler Name Role Phone Sue Blanchard Unavailable PROBLEMS Type Condition ICD9-CM Code GTB55-[id number] Code Onset Dates Condition S tatus W/U Status Risk SNOMED Code Notes Problem Bilateral knee pain M25.561 Active confirmed 91841811 Problem Neuropathy G62.9 Active confirmed 843506213 Problem Restless leg G25.81 Active confirmed 7450836 8 Problem Dry eyes, bilateral H04.123 Active confirmed 838420646 Problem Pterygium of right eye H11.001 Active confirmed 59152321 Problem AIDS B20 Active confirmed 24623911 Problem control counseling Z30.09 Active confirmed 673938552 Problem External hemorrhoids with complication K64.8 A ctive confirmed 35764734 Problem Allergic sinusitis J30.9 Active confirmed 3 4099490 Problem Other acne L70.8 Active confirmed 79510535 Problem Hypercholesteremia E78.00 Active confirmed 1 0031892 Problem 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.893 Active confirmed 18343250 ALLERGIES No Known Allergies ENCOUNTERS from 1982 to 2021-06-25 Encounter Location Date Provider Diagnosis [facility] [place] [address] [facility] [phone] [place] [address] 14 Jun, 2021 Sue Blanchard AIDS B20 ; Vaginal c andidiasis B37.3 ; Hypercholesteremia E78.00 ; Varicose veins of bilateral lower extremities with other complications I83.893 and Encounter for immunization Z23 IMMUNIZATIONS Vaccine Route Administration Date Status Pneumococcal Adult 0.5mL Pneumovax 23 Unknown Oct 04 12 Administered TDAP Unknown March 14, 2015 Administered TDAP Unknown Jun 16, 2012 Administered Pneumococcal 0.5mL Prevnar 13 IM Intramuscular Jul 17, 2015 A dministered MMR 0.5mL SC Subcutaneous Oct 14, 2017 Administered Influenza 6mo & up Fluzone IM Intramuscular Jul 17, 2015 Admi nistered Meningococcal 0.5mL Menveo Groups A,C,Y & W-135 IM Intramuscular Jul 21, 2017 Administered Influenza 6mo & up Fluzone IM Intramuscular Jun 23, 2014 Admi nistered Meningococcal 0.5mL Menveo Groups A,C,Y & W-135 IM Intramuscular November 18, 2017 Administered Influenza 6mo & up Fluzone IM Intramuscular Aug 09, 2013 Admi nistered Influenza 18 yrs & older Flublok IM Intramuscular Jun 14, 2021 Administered Hepatitis B Adult 1.0mL Engerix-B IM Intramuscular Jul 21, 2017 Administered SOCIAL HISTORY Tobacco Use: Social History Observation Description Date Details (start date - stop date) Never Smoker Sex Assigned At : Social History Observation Description Sex Assigned At Unknown Sexual Hx: Question Answer Notes Had sex in the last 12 months (vaginal, oral, or anal)? Yes LMP: 10/29/2019 Have you ever had an STD? Yes Prevention Strategies discussed: Condoms with Men only Use protection? Yes Other? Yes Herpes? No Syphilis? No GC? No Chlamydia? No How often? Some of the time Alcohol Screening: Question Answer Notes Did you have a drink containing alcohol in the past year? No Points 0 Interpretation Negative Tobacco Use: Question Answer Notes Are you a: never smoker REASON FOR REFERRAL No Information VITAL SIGNS Weight 176 lbs Jun, Weight-kg 79.83 kg Jun, Height 66 in Jun, BMI 28.40 kg/m2 Jun, Heart Rate 93 /min Jun, Respiratory Rate 18 /min Jun, Temperature 97.6 degrees Fahrenheit Jun, Oximetry 100% Jun, Blood pressure systolic 114 mm Hg Jun, Blood pressure diastolic 62 mm Hg Jun, MEDICATIONS Medication SIG (Take, Route, Frequency, Duration) Notes Start Da te End Date Status Prezcobix 800-150 MG 1 tablet with food Orally Once a day for 30 day( s) Active Fluconazole 150 MG 1 tablet Orally daily for 7 day(s) 2020 Active Genvoya [phone] MG as directed Orally Daily for 30 day(s) Active PROCEDURES from 1982 to 2021-06-25 Procedure Date Ordered Result Body Site Imm: Flublok Quadrivalent 18 years & older 0.5mL IM Influenza 20 -10-14 N/A RESULTS Component Value Reference Range Comprehensive Metabolic Profile (CMP) Reviewed date:06/14/2021 19:48:17 Interpretation: Performing Lab:Replaced by [facility] [address] [facility] [address] , ,[place] [address] GLUCOSE, FASTING 92 70-100 BLOOD UREA NITROGEN 10 7-18 CREATININE FOR GFR 0.85 0.55-1.30 GLOMERULAR FILTRATION RATE > 60.0 >60 SODIUM LEVEL 138 136-145 POTASSIUM SERUM 4.0 3.5-5.1 CHLORIDE LEVEL 105 98-107 CARBON DIOXIDE LEVEL 30 21-32 CALCIUM LEVEL 9.1 8.5-10.1 AST/SGOT 15 7-37 ALT/SGPT 25 12-78 ALKALINE PHOSPHATASE 64 45-117 BILIRUBIN,TOTAL 0.4 0.2-1.0 TOTAL PROTEIN 7.6 6.4-8.2 ALBUMIN 3.7 3.2-5.2 ALBUMIN/GLOBULIN RATIO 0.9 1.2-2.2 LIPID PANEL (CARDIAC RISK) Reviewed date:06/14/2021 19:48:17 Interpretation: Performing Lab:Replaced by [facility] [address] [facility] [address] , ,[place] [address] TRIGLYCERIDES LEVEL 88 <150 CHOLESTEROL LEVEL 244 <200 HDL CHOLESTEROL 75 >40 LDL CHOLESTEROL 151 <100 NON-HDL-C 169 CHOLESTEROL RISK RATIO 3.253 <5 CD4/CD8 RATIO PROFILE [id number] Reviewed date:06/19/2021 14:16:11 Interpretation: Performing Lab:[facility] [address] [facility] [address] , ,[place] [address] Abs CD4 [place] [phone] %CD4 Pos Lymphs 39.5 30.8-58.5 Abs CD8 Suppres 591 109-897 % CD8 Pos Lymph 39.4 12.0-35.5 CD4/CD8 Ratio 1.00 0.92-3.72 WBC 3.0 3.4-10.8 RBC 3.98 3.77-5.28 HGB 12.2 11.1-15.9 HCT 36.9 34.0-46.6 MCV 93 79-97 MCH 30.7 26.6-33.0 MCHC 33.1 31.5-35.7 RDW 12.1 11.7-15.4 Platelets 252 150-450 Neutrophils 40 Not Estab. Lymphocytes 50 Not Estab. Monocytes 8 Not Estab. Eosinophils 1 Not Estab. Basophils 1 Not Estab. ABS Neutophils 1.2 1.4-7.0 ABS Lymphs 1.5 0.7-3.1 ABS Monocytes 0.2 0.1-0.9 ABS Eosinophils 0.0 0.0-0.4 ABS Basophils 0.0 0.0-0.2 HIV-1 RNA PCR QUANT [id number] (Viral Load ) Reviewed date:06/19/2021 14:16:11 Interpretation: Performing Lab:[facility] [address] [address] , ,[place] [address] HIV-1 RNA PCR QUANT 2 [id number] <20 . HIV-1 RNA PCR QUANT 3 [id number] TNP . REASON FOR VISIT follow up MEDICAL (GENERAL) HISTORY Type Description Date Medical History HIV AIDS positive Dx 2009 TX in [place] combivir/virammune 10/2009 DC 04/2012 immigrated to [place] [id number] switched meds Medical History H. 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 She has undetectable and therefore untransmissible to partner. She was previously given information on disclosure to partners and HIV prep for partner if he would like to take Truvada. Jun, Vaginal candidiasis (ICD-10 - B37.3) Initially responded to fluconazole but symptoms have returned. Will try a longer course if not better will discus with OB has appt in July for IUD Jun, Hypercholesteremia (ICD-10 - E78.00) Last checked Chol 210 LDL 132. Previously low chol diet discussed and weight loss. Will repeat lipid panel today. Jun, Varicose veins of bilateral lower extremities with other complications (ICD-10 - I83.893) She was referred to vascular surgery previously who recommended compression stockings Jun, Encounter for immunization (ICD-10 - Z23) PLAN OF TREATMENT Medication Medication Name Sig Start Date Stop Date Prezcobix 800-150 MG 1 tablet with food Orally Once a day for 30 day(s) Genvoya [phone] MG as directed Orally Daily for 30 day(s) Fluconazole 150 MG 1 tablet Orally daily for 7 day(s) Jun, Treatment Notes Assessment Notes Clinical Notes AIDS She is 100% complain t with medication. She has undetectable and therefore untransmissible to partner. She was previously given information on disclosure to partners and HIV prep for partner if he would like to take Truvada. Vaginal candidiasis Initially responded to fluconazole but symptoms have returned. Will try a longer course if not better will discus with OB has appt in July for IUD Hypercholesteremia Last checked Chol 21 0 LDL 132. Previously low chol diet discussed and weight loss. Will repeat lipid panel today. Varicose veins of bilateral lower extremities with other com plications She was referred to vascular surgery previously who recommended compression stockings Next Appt Details 4 Months Reason:follow up Provider Name:Noemy Pierson, 2021-07-16 10:15:00 AM, [address] [facility], , [place], [address], Provider Name:Sue Blanchard, 2021-10- 5 08:30:00 AM, [address] [facility], , [place], [address], Follow Up:4 Monthsfollow up Insurance Providers Payer Name Payer Address Payer Phone Insured Name Patient Relati onship to Insured Coverage Start Date Coverage End Date [facility] [address] [facility] [id number] RYDER HERNANDEZ self
--- OUTSIDE RECORDS SUMMARY | 2021-07-23 19:59 | CCD ---
Author Author [facility] Organization [facility] Address Unknown Phone Unavailable Care Team Providers Care Business Banker Name Role Phone Noemy Pierson Unavailable PROBLEMS Type Condition ICD9-CM Code TZX77-WZ Code Onset Dates Condition S tatus W/U Status Risk SNOMED Code Notes Problem Bilateral knee pain M25.561 Active confirmed 97395011 Problem Neuropathy G62.9 Active confirmed 126395496 Problem Restless leg G25.81 Active confirmed 9948733 8 Problem Dry eyes, bilateral H04.123 Active confirmed 951536408 Problem Pterygium of right eye H11.001 Active confirmed 16394337 Problem AIDS B20 Active confirmed 57311258 Problem control counseling Z30.09 Active confirmed 588898484 Problem External hemorrhoids with complication K64.8 A ctive confirmed 96603361 Problem Allergic sinusitis J30.9 Active confirmed 3 6043440 Problem Other acne L70.8 Active confirmed 99145476 Problem Hypercholesteremia E78.00 Active confirmed 1 0800692 Problem 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.893 Active confirmed 29753686 ALLERGIES No Known Allergies ENCOUNTERS from 1982 to 2021-05-02 Encounter Location Date Provider Diagnosis [facility] [address] [facility] [phone] [place] [address] May, Noemy Pierson Routine gynecologica l examination Z01.419 ; Screening for malignant neoplasm of cervix Z12.4 and Encounter for other general counseling or advice on contraception Z30.09 IMMUNIZATIONS Vaccine Route Administration Date Status Pneumococcal 0.5mL Prevnar 13 IM Intramuscular Jul 17, 2015 A dministered Pneumococcal Adult 0.5mL Pneumovax 23 Unknown Oct 04 12 Administered TDAP Unknown March 14, 2015 Administered TDAP Unknown Jun 16, 2012 Administered MMR 0.5mL SC Subcutaneous Oct 14, 2017 [...] IM Intramuscular Aug 09, 2013 Admi nistered Hepatitis B Adult 1.0mL Engerix-B IM Intramuscular [...] FOR REFERRAL No Information VITAL SIGNS Weight 178 lbs May, Height 66 in May, BMI 28.73 kg/m2 May, Blood pressure systolic 104 mm Hg May, Blood pressure diastolic 62 mm Hg May, MEDICATIONS Medication SIG (Take, Route, Frequency, Duration) Notes Start Da te End Date Status Nasonex 50 MCG/ACT 2 sprays in each nostril Nasally Once a day f or 30 day(s) Not-Taking Prezcobix 800-150 MG 1 tablet with food Orally Once a day for 30 day( s) Active Genvoya [phone] MG as directed Orally Daily for 30 day(s) Active Cyclobenzaprine HCl 10 MG 1 tablet at bedtime as neede d Orally Once a day for 30 day(s) Not-Taking ZyrTEC-D Allergy & Congestion 5-120 MG 1 tablet as nee ded Orally Once a day for 30 day(s) Not-Taking Naproxen 500 MG 1 tablet with food or milk as needed Orally every 12 hrs Not-Taking PROCEDURES No Information RESULTS No Results REASON FOR VISIT annual/ bc consult MEDICAL (GENERAL) HISTORY Type Description Date Medical History HIV AIDS positive Dx 2009 TX in [place] combivir/virammune 10/2009 DC 04/2012 immigrated to [place] [id number] switched meds Medical History H. pylori gastritis [...] Notes Treatment Notes Treatm ent Clinical Notes May, Routine gynecological examination (ICD-10 - Z01. 419) Reviewed diet and exercise. Reviewed abnormal breast findings that could indicate breast cancer including: leaking fluid from nipples, excessive itching of breasts/nipples, skin changes, nipple inversion, physical changes in breast appearance, masses, nodules, or lumps noted when palpating breasts Reviewed tracking of cycles, report any abnormal bleeding, pelvic pain, or abnormal vaginal discharge. HCRA completed May, Screening for malignant neoplasm of cervix (ICD- 10 - Z12.4) Reviewed ASCCP guidelines for pap screening and frequency, reviewed utility of HPV testing as well and when next pap will be due May, Encounter for other general counseling or advice on contraception (ICD-10 - Z30.09) Reviewed all available options including pills, patch, ring, implant, iud, diaphragm, condoms, and sterilization. After reviewing handout discussing each method, pt would like to use Paragard. Reviewed efficacy, risk/benefit, side effects, bleeding profile. PLAN OF TREATMENT Treatment Notes Assessment Notes Clinical Notes Routine gynecological examination Review ed diet and exercise. Reviewed abnormal breast findings that could indicate breast cancer including: leaking fluid from nipples, excessive itching of breasts/nipples, skin changes, nipple inversion, physical changes in breast appearance, masses, nodules, or lumps noted when palpating breastsReviewed tracking of cycles, report any abnormal bleeding, pelvic pain, or abnormal vaginal discharge.HCRA completed Screening for malignant neoplasm of cervix Reviewed ASCCP guidelines for pap screening and frequency, reviewed utility of HPV testing as well and when next pap will be due Encounter for other general counseling or advice on contrace ption Reviewed all available options including pills, patch, ring, implant, iud, diaphragm, condoms, and sterilization. After reviewing handout discussing each method, pt would like to use Paragard. Reviewed efficacy, risk/benefit, side effects, bleeding profile. Treatment Notes Test Name Order Date PAP REQUEST FOR SERVICE 2021-05-02 Next Appt Details 2-4 Weeks Reason:IUD insert Provider Name:Sue Blanchard, 2 10:00:00 AM, [address] [place] [address] , [place], [address], Provider Name:Noemy Pierson, 2021-07-16 10:15:00 AM, [address] [place] [address] , [place], [address], Follow Up:2-4 WeeksIUD insert Insurance Providers Payer Name Payer Address Payer Phone Insured Name Patient Relati onship to Insured Coverage Start Date Coverage End Date [facility] [employer]AN [facility] [address] [facility] [id number] RYDER HERNANDEZ self
--- OUTSIDE RECORDS SUMMARY | 2021-07-23 19:59 | CCD ---
Author Author [facility] Organization [facility] Address Unknown Phone Unavailable Care Team Providers Care Hvac Design Mechanical Engineer Name Role Phone Sue Blanchard Unavailable PROBLEMS Type Condition ICD9-CM Code [id number] Code Onset Dates Condition S tatus W/U Status Risk SNOMED Code Notes Problem Bilateral knee pain M25.561 Active confirmed 21719443 Problem Neuropathy G62.9 Active confirmed 552475509 Problem Restless leg G25.81 Active confirmed 7776386 8 Problem Dry eyes, bilateral H04.123 Active confirmed 033653992 Problem Pterygium of right eye H11.001 Active confirmed 05064174 Problem AIDS B20 Active confirmed 73608932 Problem control counseling Z30.09 Active confirmed 868817504 Problem External hemorrhoids with complication K64.8 A ctive confirmed 22000465 Problem Allergic sinusitis J30.9 Active confirmed 3 6760526 Problem Other acne L70.8 Active confirmed 11912419 Problem Hypercholesteremia E78.00 Active confirmed 1 4135817 Problem 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.893 Active confirmed 56706280 ALLERGIES No Known Allergies ENCOUNTERS from 1982 to 2021-05-15 Encounter Location Date Provider Diagnosis [address] [phone] [place] [address] 10 May, 2021 Sue Lo IMMUNIZATIONS Vaccine Route Administration Date Status Pneumococcal [...] REASON FOR REFERRAL No Information VITAL SIGNS No information MEDICATIONS Medication SIG (Take, Route, Frequency, Duration) Notes Start Da te End Date Status Nasonex 50 MCG/ACT 2 sprays in each nostril Nasally Once a day f or 30 day(s) Not-Taking Genvoya 398-470-086-10 MG as directed Orally Daily for 30 day(s) Active Fluconazole 150 MG 1 tablet Orally every 3 days for 10 day(s) May, Active Cyclobenzaprine HCl 10 MG 1 tablet at bedtime as neede d Orally Once a day for 30 day(s) Not-Taking ZyrTEC-D Allergy & Congestion 5-120 MG 1 tablet as nee ded Orally Once a day for 30 day(s) Not-Taking Naproxen 500 MG 1 tablet with food or milk as needed Orally every 12 hrs Not-Taking Prezcobix 800-150 MG 1 tablet with food Orally Once a day for 30 day( s) Active PROCEDURES No Information RESULTS No Results REASON FOR VISIT vaginal itch MEDICAL (GENERAL) HISTORY Type Description Date Medical History HIV AIDS positive Dx 2009 TX in [place] combivir/virammune 10/2009 DC 04/2012 immigrated to [place] [id number]=063 switched meds Medical History H. pylori gastritis [...] No Information FUNCTIONAL STATUS No Information ASSESSMENTS No Information PLAN OF TREATMENT Medication Medication Name Sig Start Date Stop Date Fluconazole 150 MG 1 tablet Orally every 3 days for 10 day(s) May, Next Appt Details Provider Name:Sue Blanchard, 2 10:00:00 AM, [address] [place] [address] , [place], [address], Provider Name:Noemy Pierson, 2021-07-16 10:15:00 AM, [address] [place] [address] , [place], [address], Insurance Providers Payer Name Payer Address Payer Phone Insured Name Patient Relati onship to Insured Coverage Start Date Coverage End Date [facility] COMMUN[facility] PLAN [facility] [address] [facility] [phone] RYDER HERNANDEZ self
--- OUTSIDE RECORDS SUMMARY | 2021-07-23 19:59 | CCD ---
Author Author [facility] Organization [facility] Address Unknown Phone Unavailable Care Team Providers Care Terrazzo Laborer Name Role Phone Noemy Pierson Unavailable PROBLEMS Type Condition ICD9-CM Code [id number] Code Onset Dates Condition S tatus W/U Status Risk SNOMED Code Notes Problem Bilateral knee pain M25.561 Active confirmed 32518067 Problem Neuropathy G62.9 Active confirmed 121569325 Problem Restless leg G25.81 Active confirmed 4363953 8 Problem Dry eyes, bilateral H04.123 Active confirmed 507147736 Problem Pterygium of right eye H11.001 Active confirmed 74550409 Problem AIDS B20 Active confirmed 22401889 Problem control counseling Z30.09 Active confirmed 265369667 Problem External hemorrhoids with complication K64.8 A ctive confirmed 46270936 Problem Allergic sinusitis J30.9 Active confirmed 3 9512286 Problem Other acne L70.8 Active confirmed 83656467 Problem Hypercholesteremia E78.00 Active confirmed 1 7465785 Problem 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 0 IMMUNIZATIONS Vaccine Route Administration Date Status Pneumococcal [...] Notes Start Da te End Date Status Fluconazole 150 MG 1 tablet Orally daily for 7 day(s) 14 2020 Active Prezcobix 800-150 MG 1 tablet with food Orally Once a day for 30 day( s) Active Genvoya [phone] MG as directed Orally Daily for 30 day(s) Active metroNIDAZOLE 0.75 % 1 applicatorful at bedtime Vaginal Once a day for 5 day(s) Jul, Active PROCEDURES No Information RESULTS No Results REASON FOR VISIT rx for metrogel MEDICAL (GENERAL) HISTORY Type Description Date Medical History HIV AIDS positive Dx 2009 TX in [place] combivir/virammune 10/2009 DC 04/2012 immigrated to [place] BL4=989 switched meds Medical History H. pylori gastritis [...] Notes Treatment Notes Treatm ent Clinical Notes Jul, Acute vaginitis (ICD-10 - N76.0) PLAN OF TREATMENT Medication Medication Name Sig Start Date Stop Date metroNIDAZOLE 0.75 % 1 applicatorful at bedtime Vaginal Once a day for 5 day(s) Jul, Next Appt Details Provider Name:Noemy Pierson, 2021-07-30 08:15:00 AM, [address] [place] [address] , [place], [address], Provider Name:Sue Blanchard, 2021-10-02 5 08:30:00 AM, [address] [place] [address] , [place], [address], Insurance Providers Payer Name Payer Address Payer Phone Insured Name Patient Relati onship to Insured Coverage Start Date Coverage End Date [facility] [address] [facility] [phone] RYDER HERNANDEZ self
--- OUTSIDE RECORDS SUMMARY | 2021-07-23 19:59 | CCD ---
Author Author [facility] Organization [facility] Address Unknown Phone Unavailable Care Team Providers Care Patient Relations Manager Name Role Phone Sue Blanchard Unavailable PROBLEMS Type Condition ICD9-CM Code ERQ39-GK Code Onset Dates Condition S tatus W/U Status Risk SNOMED Code Notes Problem Bilateral knee pain M25.561 Active confirmed 61069297 Problem Neuropathy G62.9 Active confirmed 623031809 Problem Restless leg G25.81 Active confirmed 5031958 8 Problem Dry eyes, bilateral H04.123 Active confirmed 795535035 Problem Pterygium of right eye H11.001 Active confirmed 22445340 Problem AIDS B20 Active confirmed 20516658 Problem control counseling Z30.09 Active confirmed 336480951 Problem External hemorrhoids with complication K64.8 A ctive confirmed 44888943 Problem Allergic sinusitis J30.9 Active confirmed 3 6967971 Problem Other acne L70.8 Active confirmed 77458260 Problem Hypercholesteremia E78.00 Active confirmed 1 4248761 Problem 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.893 Active confirmed 53976234 ALLERGIES No Known Allergies ENCOUNTERS from 1982 to 2021-04-25 Encounter Location Date Provider Diagnosis [address] [phone] [place] [address] Apr, Sue Blanchard IMMUNIZATIONS Vaccine Route Administration Date Status Pneumococcal [...] Notes Start Da te End Date Status Cyclobenzaprine HCl 10 MG 1 tablet at bedtime as neede d Orally Once a day for 30 day(s) Active Prezcobix 800-150 MG 1 tablet with food Orally Once a day for 30 day( s) Active ZyrTEC-D Allergy & Congestion 5-120 MG 1 tablet as nee ded Orally Once a day for 30 day(s) Active Nasonex 50 MCG/ACT 2 sprays in each nostril Nasally Once a day f or 30 day(s) Active Genvoya 393-306-425-10 MG as directed Orally Daily for 30 day(s) Active Naproxen 500 MG 1 tablet with food or milk as needed Orally every 12 hrs Active PROCEDURES No Information RESULTS No Results REASON FOR VISIT control MEDICAL (GENERAL) HISTORY Type Description Date Medical History HIV AIDS positive Dx 2009 TX in [place] combivir/virammune 10/2009 DC 04/2012 immigrated to [place] HC5=441 switched meds Medical History H. pylori gastritis [...] Once a day for 30 day(s) Genvoya [phone] MG as directed Orally Daily for 30 day(s) Next Appt Details Provider Name:Noemy Pierson, 2021-05-02 02:00:00 PM, [address] [place] [address] , [place], [address], Provider Name:Sue Blanchard, 2 10:00:00 AM, [address] [place] [address] , [place], [address], Insurance Providers Payer Name Payer Address Payer Phone Insured Name Patient Relati onship to Insured Coverage Start Date Coverage End Date [facility] COMMUNITY PLAN [facility] [address] [facility] [phone] RYDER HERNANDEZ self
--- OUTSIDE RECORDS SUMMARY | 2021-07-23 19:59 | CCD ---
Author Author [facility] Organization [facility] Address Unknown Phone Unavailable Care Team Providers Care Direct Mail Marketer Name Role Phone Sue Blanchard Unavailable PROBLEMS Type Condition ICD9-CM Code ZCN03-[place] Code Onset Dates Condition S tatus W/U Status Risk SNOMED Code Notes Problem Bilateral knee pain M25.561 Active confirmed 32058187 Problem Neuropathy G62.9 Active confirmed 205745205 Problem Restless leg G25.81 Active confirmed 2638612 8 Problem Dry eyes, bilateral H04.123 Active confirmed 182173586 Problem Pterygium of right eye H11.001 Active confirmed 61992443 Problem AIDS B20 Active confirmed 68250756 Problem control counseling Z30.09 Active confirmed 835244552 Problem External hemorrhoids with complication K64.8 A ctive confirmed 68542002 Problem Allergic sinusitis J30.9 Active confirmed 3 9140625 Problem Other acne L70.8 Active confirmed 23389447 Problem Hypercholesteremia E78.00 Active confirmed 1 1234735 Problem 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 Active confirmed 16822312 ALLERGIES No Known Allergies ENCOUNTERS from 1982 to 2021-05-03 Encounter Location Date Provider Diagnosis [facility] [place] [address] [facility] [phone] [place] [address] 24 Apr, 2021 Sue Blanchard AIDS B20 ; con trol counseling Z30.09 ; Hypercholesteremia E78.00 and Varicose veins of bilateral lower extremities with other complications I83.893 IMMUNIZATIONS Vaccine Route Administration Date Status Pneumococcal [...] No Information VITAL SIGNS Weight 178 lbs Apr, Weight-kg 80.74 kg Apr, Height 66 in Apr, BMI 28.73 kg/m2 Apr, Heart Rate 81 /min Apr, Respiratory Rate 18 /min Apr, Temperature 97.3 degrees Fahrenheit Apr, Oximetry 100% Apr, Blood pressure systolic 124 mm Hg Apr, Blood pressure diastolic 74 mm Hg Apr, MEDICATIONS Medication SIG (Take, Route, Frequency, Duration) Notes Start Da te End Date Status Nasonex 50 MCG/ACT 2 sprays in each nostril Nasally Once a day f or 30 day(s) Not-Taking Prezcobix 800-150 MG 1 tablet with food Orally Once a day for 30 day( s) Active Genvoya 597-973-525-10 MG as directed Orally Daily for 30 [...] Information RESULTS No Results REASON FOR VISIT No Information MEDICAL (GENERAL) HISTORY Type Description Date Medical History HIV AIDS positive Dx 2009 [place] in [place] combivir/virammune 10/2009 DC 04/2012 immigrated to [place] RH3=364 switched meds Medical History H. pylori gastritis [...] Notes Treatment Notes Treatm ent Clinical Notes Apr, AIDS (ICD-10 - B20) She is 100% complaint with medication. She has undetectable and therefore untransmissible to partner. I gave her information on disclosure to partners. She was previously given information on HIV prep for partner if he would like to take Truvada, but states she is not currently sexually active. She is given refill on medication Apr, control counseling (ICD-10 - Z30.09) [facility] to discuss her control she saw Noemy Dangelo October 2019. She needs a follow-up appointment to discuss control with the likelihood of her getting on last day of her period is very unlikely. control pills interact with her HIV medication I would recommend an IUD instead and condom use. She needs to disclose her HIV status also to her significant other but she is not ready. she will schedule her [facility] at [facility] today Apr, Hypercholesteremia (ICD-10 - E78.00) Last checked Chol 210 LDL 132 low chol diet discussed and weight loss. Will repeat lipid panel today. 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 She has been wearing compression stockings which she states only minimally helps. She was referred to vascular surgery previously who recommended compression stockings Apr, Other Sees neurology, getting trigger point injections PLAN OF TREATMENT Treatment Notes Assessment Notes Clinical Notes AIDS She is 100% complain t with medication. She has undetectable and therefore untransmissible to partner. I gave her information on disclosure to partners. She was previously given information on HIV prep for partner if he would like to take Truvada, but states she is not currently sexually active. She is given refill on medication control counseling I called [facility] to discuss her control she saw Noemy Dangelo October 2019. She needs a follow-up appointment to discuss control with the likelihood of her getting on last day of her period is very unlikely. control pills interact with her HIV medication I would recommend an IUD instead and condom use. She needs to disclose her HIV status also to her significant other but she is not ready.she will schedule her [facility] today Hypercholesteremia Last checked Chol 21 0 LDL 132 low chol diet discussed and weight loss. Will repeat lipid panel today. 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 She has been wearing compression stockings which she states only minimally helps. She was referred to vascular surgery previously who recommended compression stockings Next Appt Details 2 Months Reason: Provider Name:Sue Blanchard, 2020-11-0 2 10:00:00 AM, [address] [facility], , [place], [address], Provider Name:Noemy Pierson, 2021-07-16 10:15:00 AM, [address] [facility], , [place], [address], Insurance Providers Payer Name Payer Address Payer Phone Insured Name Patient Relati onship to Insured Coverage Start Date Coverage End Date [facility] [address] [facility] [phone] RYDER HERNANDEZ self
--- OUTSIDE RECORDS SUMMARY | 2021-07-23 19:59 | CCD ---
Author Author [facility] Organization [facility] Address Unknown Phone Unavailable Care Team Providers Care Comber Setter Name Role Phone Noemy Pierson Unavailable PROBLEMS Type Condition ICD9-CM Code NWY78-IH Code Onset Dates Condition S tatus W/U Status Risk SNOMED Code Notes Problem Bilateral knee pain M25.561 Active confirmed 87379610 Problem Neuropathy G62.9 Active confirmed 462701912 Problem Restless leg G25.81 Active confirmed 4499686 8 Problem Dry eyes, bilateral H04.123 Active confirmed 718731421 Problem Pterygium of right eye H11.001 Active confirmed 11073881 Problem AIDS B20 Active confirmed 49685536 Problem control counseling Z30.09 Active confirmed 549267040 Problem External hemorrhoids with complication K64.8 A ctive confirmed 94406285 Problem Allergic sinusitis J30.9 Active confirmed 3 6231420 Problem Other acne L70.8 Active confirmed 66569812 Problem Hypercholesteremia E78.00 Active confirmed 1 3784211 Problem 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.893 Active confirmed 28267021 ALLERGIES No Known Allergies ENCOUNTERS from 1982 to 2021-07-17 Encounter Location Date Provider Diagnosis [facility] [address] [facility] [phone] [place] [address] 15 Jul, 2021 Noemy Pierson Negative t est Z32.02 ; Acute vaginitis N76.0 and Other specified bacterial agents as the cause of diseases classified elsewhere B96.89 IMMUNIZATIONS Vaccine Route Administration Date Status Pneumococcal [...] No Information VITAL SIGNS Weight 176 lbs Jul, Height 66 in Jul, BMI 28.4 kg/m2 Jul, Blood pressure systolic 120 mm Hg Jul, Blood pressure diastolic 80 mm Hg Jul, MEDICATIONS Medication SIG (Take, Route, Frequency, Duration) Notes Start Da te End Date Status Fluconazole 150 MG 1 tablet Orally daily for 7 day(s) 14 2020 Active Prezcobix 800-150 MG 1 tablet with food Orally Once a day for 30 day( s) Active Genvoya 320-921-640-10 MG as directed Orally Daily for 30 day(s) Active metroNIDAZOLE 0.75 % 1 applicatorful at bedtime Vaginal Once a day for 5 day(s) Jul, Active PROCEDURES No Information RESULTS No Results REASON FOR VISIT PARAGAURD INSERTION MEDICAL (GENERAL) HISTORY Type Description Date Medical History HIV AIDS positive Dx 2009 [place] in [place] combivir/virammune 10/2009 DC 04/2012 immigrated to [place] OU4=399 switched meds Medical History H. pylori gastritis [...] medical manageme nt Surgical History C section 2014 Hospitalization History admitted for childbirth 2015 Goals Section No Information Health Concerns No Information MEDICAL EQUIPMENT No Information MENTAL STATUS No Information FUNCTIONAL STATUS No Information ASSESSMENTS Encounter Date Diagnosis Assessment Notes Treatment Notes Treatm ent Clinical Notes Jul, Negative test (ICD-10 - Z32.02) Jul, Acute vaginitis (ICD-10 - N76.0) Discussed BV and potential causes, can be from new partner, or sometimes stress can cause symptoms. Treatment of bv can be with oral metronidazole or with vaginal tx. ETOH precautions discussed. Please call if symptoms return, sometimes these infections can recur. Pt needs to reschedule IUD insert for 1-2 weeks. Jul, Other specified bacterial ag ents as the cause of diseases classified elsewhere (ICD-10 - B96.89) PLAN OF TREATMENT Medication Medication Name Sig Start Date Stop Date metroNIDAZOLE 0.75 % 1 applicatorful at bedtime Vaginal Once a day for 5 day(s) Jul, Treatment Notes Assessment Notes Clinical Notes Acute vaginitis Discussed BV and pot ential causes, can be from new partner, or sometimes stress can cause symptoms. Treatment of bv can be with oral metronidazole or with vaginal tx. ETOH precautions discussed. Please call if symptoms return, sometimes these infections can recur.Pt needs to reschedule IUD insert for 1-2 weeks. Pending Tests Test Name Order Date Test, Urine 2021-07-16 Next Appt Details 2 Weeks Reason:iud insertion Provider Name:Noemy Pierson, 2021-07-30 08:15:00 AM, [address] [place] [address] , [place], [address], Provider Name:Sue Blanchard, 2021-10-02 5 08:30:00 AM, [address] [place] [address] , [place], [address], Follow Up:2 Weeksiud insertion Insurance Providers Payer Name Payer Address Payer Phone Insured Name Patient Relati onship to Insured Coverage Start Date Coverage End Date [facility] COMMUN[facility] PLAN [facility] [address] [facility] [id number] RYDER HERNANDEZ self
--- OUTSIDE RECORDS SUMMARY | 2021-07-23 20:00 | CCD ---
Author Author [facility] Address Unknown Phone Unavailable Care Team Providers Care Jewelry Inspector Name Role Phone Sinai Lerner MD Unavailable Unavailable Sinai Lerner MD Unavailable Unavailable Sinai Lerner MD Unavailable Unavailable MollisonSinai MD Unavailable Unavailable MollisonSinai MD Unavailable Unavailable Mollison, Sinai Dumont MD Unavailable Unavailable Mollison, Sinai Dumont MD Unavailable Unavailable Mollison, Sinai Dumont MD Unavailable Unavailable Mollison, Sinai Dumont MD Unavailable Unavailable Mollison, Sinai Dumont MD Unavailable Unavailable Mollison, Sinai Dumont MD Unavailable Unavailable Mollison, Sinai Dumont MD Unavailable Unavailable Mollison, Sinai Dumont MD Unavailable Unavailable Mollison, Sinai Dumont MD Unavailable Unavailable Mollison, Sinai Dumont MD Unavailable Unavailable Mollison, Sinai Dumont MD Unavailable Unavailable Mollison, Sinai Dumont MD Unavailable Unavailable Mollison, Sinai Dumont MD Unavailable Unavailable Mollison, Sinai Dumont MD Unavailable Unavailable Mollison, Sinai Dumont MD Unavailable Unavailable Mollison, Sinai Dumont MD Unavailable Unavailable Mollison, Sinai Dumont MD Unavailable Unavailable Mollison, Sinai Dumont MD Unavailable Unavailable Mollison, Sinai Dumont MD Unavailable Unavailable Mollison, Sinai Dumont MD Unavailable Unavailable Mollison, Sinai Dumont MD Unavailable Unavailable Mollison, Sinai Dumont MD Unavailable Unavailable MollisonSinai MD Unavailable Unavailable MollisonSinai MD Unavailable Unavailable MollisonSinai MD Unavailable Unavailable Rosa Smalls MD Unavailable Unavailable Rosa Smalls MD Unavailable Unavailable Rosa Smalls MD Unavailable Unavailable Rosa Smalls MD Unavailable Unavailable Rosa Smalls MD Unavailable Unavailable Rosa Smalls MD Unavailable Unavailable Rosa Smalls MD Unavailable Unavailable Rosa Smalls MD Unavailable Unavailable Rosa Smalls MD Unavailable Unavailable Rosa Smalls MD Unavailable Unavailable Rosa Smalls MD Unavailable Unavailable Rosa Smalls MD Unavailable Unavailable Rosa Smalls MD Unavailable Unavailable Rosa Smalls MD Unavailable Unavailable Rosa Smalls MD Unavailable Unavailable Rosa Smalls MD Unavailable Unavailable Rosa Smalls MD Unavailable Unavailable Rosa Smalls MD Unavailable Unavailable Rosa Smalls MD Unavailable Unavailable Rosa Smalls MD Unavailable Unavailable Rosa Smalls MD Unavailable Unavailable Rosa Smalls MD Unavailable Unavailable Rosa Smalls MD Unavailable Unavailable Rosa Smalls MD Unavailable Unavailable Rosa Smalls MD Unavailable Unavailable Rosa Smalls MD Unavailable Unavailable Rosa Smalls MD Unavailable Unavailable Rosa Smalls MD Unavailable Unavailable Rosa Smalls MD Unavailable Unavailable Rosa Smalls MD Unavailable Unavailable Rosa Smalls MD Unavailable Unavailable Rosa Smalls MD Unavailable Unavailable Rosa Smalls MD Unavailable Unavailable Rosa Smalls MD Unavailable Unavailable Rosa Smalls MD Unavailable Unavailable Rosa Smalls MD Unavailable Unavailable Rosa Smalls MD Unavailable Unavailable Rosa Smalls MD Unavailable Unavailable Rosa Smalls MD Unavailable Unavailable Rosa Smalls MD Unavailable Unavailable Rosa Smalls MD Unavailable Unavailable Rosa Smalls MD Unavailable Unavailable Rosa Smalls MD Unavailable Unavailable Rosa Smalls MD Unavailable Unavailable Rosa Smalls MD Unavailable Unavailable Rosa Smalls MD Unavailable Unavailable Rosa Smalls MD Unavailable Unavailable Rosa Smalls MD Unavailable Unavailable Rosa Smalls MD Unavailable Unavailable Rosa Smalls MD Unavailable Unavailable Rosa Smalls MD Unavailable Unavailable Rosa Smalls MD Unavailable Unavailable Rosa Smalls MD Unavailable Unavailable Rosa Smalls MD Unavailable Unavailable Rosa Smalls MD Unavailable Unavailable Rosa Smalls MD Unavailable Unavailable Rosa Smalls MD Unavailable Unavailable Rosa Smalls MD Unavailable Unavailable Rosa Smalls MD Unavailable Unavailable Rosa Smalls MD Unavailable Unavailable Rosa Smalls MD Unavailable Unavailable Rosa Smalls MD Unavailable Unavailable Rosa Smalls MD Unavailable Unavailable Rosa Smalls MD Unavailable Unavailable Rosa Smalls MD Unavailable Unavailable Rosa Smalls MD Unavailable Unavailable Rosa Smalls MD Unavailable Unavailable Rosa Smalls MD Unavailable Unavailable Rosa Smalls MD Unavailable Unavailable Rosa Smalls MD Unavailable Unavailable Rosa Smalls MD Unavailable Unavailable Slim, O Samah MD Unavailable Unavailable Slim, O Samah MD Unavailable Unavailable Slim, O Samah MD Unavailable Unavailable Slim, O Samah MD Unavailable Unavailable Slim, O Samah MD Unavailable Unavailable Slim, O Samah MD Unavailable Unavailable Slim, O Samah MD Unavailable Unavailable Slim, O Samah MD Unavailable Unavailable Re-disclosure Warning The records that you are about to access may contain information from federally-assisted alcohol or drug abuse programs. If such information is present, then the following federally mandated warning applies: This information has been disclosed to you from records protected by federal confidentiality rules (42 CFR part 2). The federal rules prohibit you from making any further disclosure of this information unless further disclosure is expressly permitted by the written consent of the person to whom it pertains or as otherwise permitted by 42 CFR part 2. A general authorization for the release of medical or other information is NOT sufficient for this purpose. The Federal rules restrict any use of the information to criminally investigate or prosecute any alcohol or drug abuse patient.The records that you are about to access may contain highly sensitive health information, the redisclosure of which is protected by Article 27-F of the [facility] Public Health law. If you continue you may have access to information: Regarding HIV / AIDS; Provided by facilities licensed or operated by the [facility] Office of Mental Health; or Provided by the [facility] Office for People With Developmental Disabilities. If such information is present, then the following [facility] mandated warning applies: This information has been disclosed to you from confidential records which are protected by state law. State law prohibits you from making any further disclosure of this information without the specific written consent of the person to whom it pertains, or as otherwise permitted by law. Any unauthorized further disclosure in violation of state law may result in a fine or skilled nursing sentence or both. A general authorization for the release of medical or other information is NOT sufficient authorization for further disc losure. Encounters Encounter Providers Location Date Indications Data Source(s ) Unknown [address] [facility] [facility] [place] [address] 07/19/2021 12:00:00 AM EST [facility] Outpatient [address] [facility] [facility] [place] [address] 07/16/2021 12:00:00 AM EST eCW1 ([facility]) Outpatient [address] [facility] [place] [address] 06/14/2021 12:00:00 AM EDT eCW1 ([facility]) Unknown [address] [facility] [place] [address] 05/11/2021 12:00:00 AM EDT eCW1 ([facility]) Outpatient [address] [facility] [facility] [place] [address] 05/02/2021 12:00:00 AM EDT eCW1 [facility] [place] [address] [facility] [place] [address] 04/24/2021 12:00:00 AM EDT eCW1 [facility] Unknown [address] [facility] [place] [address] 04/23/2021 12:00:00 AM EDT eCW1 ([facility]) Outpatient Attender: Tim Dolan/Day/Grzegorz/Re indl 01/19/2021 02:00:00 PM EDT [facility] ([facility] ) Outpatient Attender: Donya Smalls MD [facility] 01/10/2021 02:15:00 PM EDT MEDENT ([facility], ) Outpatient Attender: Tim Dolan/Day/Grzegorz/Re indl 01/09/2021 10:45:00 AM EDT [facility] ([facility] Unknown [address] [facility] [place] [address] 01/04/2021 12:00:00 AM EDT eCW1 ([facility]) Outpatient [address] [facility] [facility] [place] [address] 01/02/2021 12:00:00 AM EDT eCW1 ([facility]) Outpatient Attender: Tim Dolan/Day/Grzegorz/Re indl 12/21/2020 09:00:00 AM EDT MED[facility] ([facility]) Outpatient Attender: Donya Smalls MD Main office - [facility] 08/22/2020 09:45:00 AM EST MEDENT ([facility]) Outpatient [address] [facility] [facility] [place] [address] 07/06/2020 12:00:00 AM EST eCW1 ([facility]) Immunizations Vaccine Date Status Description Data Source(s) influenza, recombinant, quadrIvalent,injectable, prese rvative free 06/14/2021 08:54:00 AM EDT completed eCW1 ([facility]) influenza, recombinant, quadrIvalent,injectable, prese rvative free 06/14/2021 08:54:00 AM EDT completed eCW1 ([facility]) influenza, recombinant, quadrIvalent,injectable, prese rvative free 06/14/2021 08:54:00 AM EDT completed eCW1 ([facility]) COVID-19 VACCINE [place] 02/09/2021 12:00:00 AM EDT completed NYSIIS Vaccine Series Complete: YESThis Data wa s Submitted to [facility] Via [facility]ter[facility]. Medications Medication Brand Name Start Date Product Form Dose Route Admi nistrative Instructions Pharmacy Instructions Status Indications Reaction Description Data Source(s) 0.75 % 07/19/2021 12:00:00 AM EST gel 70 INSERT 1 APPLICATORFUL VAGINALLY AT BEDTIME FOR 5 DAYS INSERT 1 APPLICATORFUL VAGINALLY AT BEDTIME FOR 5 DAYS SOLD: 07/19/2021 [facility] Metronidazole 0.0075 MG/MG Vaginal Gel metroNIDAZOLE 0 .75 % metroNIDAZOLE 0.75 % 07/16/2021 12:00:00 AM EST active metroNIDAZOLE 0.75 % eCW1 ([facility]) Metronidazole 0.0075 MG/MG Vaginal Gel metroNIDAZOLE 0 .75 % metroNIDAZOLE 0.75 % 07/16/2021 12:00:00 AM EST active metroNIDAZOLE 0.75 % eCW1 ([facility]) 150 mg 06/14/2021 12:00:00 AM EDT tablet 7 TAKE ONE TABLET BY MOUTH EVERY DAY TAKE ONE TABLET BY MOUTH EVERY DAY SOLD: 06/15/2021 [facility] Fluconazole 150 MG Oral Tablet Fluconazole 150 MG 06/14/2021 12:00: 00 AM EDT 1.0 {tablet} active Fluconazole 150 MG eCW1 ([facility]) Fluconazole 150 MG Oral Tablet Fluconazole 150 MG 06/14/2021 12:00: 00 AM EDT 1.0 {tablet} active Fluconazole 150 MG eCW1 ([facility]) Fluconazole 150 MG Oral Tablet Fluconazole 150 MG 06/14/2021 12:00: 00 AM EDT 1.0 {tablet} active Fluconazole 150 MG eCW1 ([facility]) 150 mg 05/15/2021 12:00:00 AM EDT tablet 3 TAKE 1 TABLET BY MOUTH EVERY 3 DAYS TAKE 1 TABLET BY MOUTH EVERY 3 DAYS SOLD: 05/23/2021 [facility] Fluconazole 150 MG Oral Tablet Fluconazole 150 MG 05/14/2021 12:00: 00 AM EDT 1.0 {tablet} active Fluconazole 150 MG eCW1 ([facility]) cobicistat 150 MG / elvitegravir 150 MG / emtricitabine 200 MG / tenofovir alafenamide 10 MG Oral Tablet [Genvoya] [phone] mg ELVITEG/COB/EMTRI/TENOF ALAFEN 02/13/2021 12:00:00 AM EDT tablet 30 DIRECTED DAILY DIRECTED DAILY SOLD: 07/16/2021 [facility] cobicistat 150 MG / elvitegravir 150 MG / emtricitabine 200 MG / tenofovir alafenamide 10 MG Oral Tablet [Genvoya] [phone] mg ELVITEG/COB/EMTRI/TENOF ALAFEN 02/13/2021 12:00:00 AM EDT tablet 30 DIRECTED DAILY DIRECTED DAILY SOLD: 02/26/2021 [facility] cobicistat 150 MG / elvitegravir 150 MG / emtricitabine 200 MG / tenofovir alafenamide 10 MG Oral Tablet [Genvoya] [phone] mg ELVITEG/COB/EMTRI/TENOF ALAFEN 02/13/2021 12:00:00 AM EDT tablet 30 DIRECTED DAILY DIRECTED DAILY SOLD: 05/03/2021 [facility] cobicistat 150 MG / elvitegravir 150 MG / emtricitabine 200 MG / tenofovir alafenamide 10 MG Oral Tablet [Genvoya] [phone] mg ELVITEG/COB/EMTRI/TENOF ALAFEN 02/13/2021 12:00:00 AM EDT tablet 30 DIRECTED DAILY DIRECTED DAILY SOLD: 03/30/2021 [facility] cobicistat 150 MG / elvitegravir 150 MG / emtricitabine 200 MG / tenofovir alafenamide 10 MG Oral Tablet [Genvoya] [phone] mg ELVITEG/COB/EMTRI/TENOF ALAFEN 02/13/2021 12:00:00 AM EDT tablet 30 DIRECTED DAILY DIRECTED DAILY SOLD: 06/08/2021 [facility] cobicistat 150 MG / elvitegravir 150 MG / emtricitabine 200 MG / tenofovir alafenamide 10 MG Oral Tablet [Genvoya] [phone] mg ELVITEG/COB/EMTRI/TENOF ALAFEN 01/16/2021 12:00:00 AM EDT tablet 30 TAKE ONE TABLET BY MOUTH EVERY DAY DIRECTED TAKE ONE TABLET BY MOUTH EVERY DAY DIRECTED SOLD: 01/27/2021 [facility] cobicistat 150 MG / darunavir 800 MG Oral Tablet [Elle cobix] 800-150 mg-mg DARUNAVIR/COBICISTAT 01/15/2021 12:00:00 AM EDT tablet 30 TAKE ONE TABLET BY MOUTH EVERY DAY WITH FOOD TAKE ONE TABLET BY MOUTH EVERY DAY WITH FOOD SOLD: 06/08/2021 [facility] cobicistat 150 MG / darunavir 800 MG Oral Tablet [Elle cobix] 800-150 mg-mg DARUNAVIR/COBICISTAT 01/15/2021 12:00:00 AM EDT tablet 30 TAKE ONE TABLET BY MOUTH EVERY DAY WITH FOOD TAKE ONE TABLET BY MOUTH EVERY DAY WITH FOOD SOLD: 05/03/2021 [facility] cobicistat 150 MG / darunavir 800 MG Oral Tablet [Elle cobix] 800-150 mg-mg DARUNAVIR/COBICISTAT 01/15/2021 12:00:00 AM EDT tablet 30 TAKE ONE TABLET BY MOUTH EVERY DAY WITH FOOD TAKE ONE TABLET BY MOUTH EVERY DAY WITH FOOD SOLD: 03/30/2021 [facility] cobicistat 150 MG / darunavir 800 MG Oral Tablet [Elle cobix] 800-150 mg-mg DARUNAVIR/COBICISTAT 01/15/2021 12:00:00 AM EDT tablet 30 TAKE ONE TABLET BY MOUTH EVERY DAY WITH FOOD TAKE ONE TABLET BY MOUTH EVERY DAY WITH FOOD SOLD: 02/26/2021 [facility] cobicistat 150 MG / darunavir 800 MG Oral Tablet [Elle cobix] 800-150 mg-mg DARUNAVIR/COBICISTAT 01/15/2021 12:00:00 AM EDT tablet 30 TAKE ONE TABLET BY MOUTH EVERY DAY WITH FOOD TAKE ONE TABLET BY MOUTH EVERY DAY WITH FOOD SOLD: 01/27/2021 [facility] cobicistat 150 MG / darunavir 800 MG Oral Tablet [Elle cobix] 800-150 mg-mg DARUNAVIR/COBICISTAT 01/15/2021 12:00:00 AM EDT tablet 30 TAKE ONE TABLET BY MOUTH EVERY DAY WITH FOOD TAKE ONE TABLET BY MOUTH EVERY DAY WITH FOOD SOLD: 07/16/2021 [facility] 0.3-0.1 % 07/14/2020 12:00:00 AM EST drops,suspension 5 INSTILL ONE DROP IN THE RIGHT EYE FOUR TIMES A DAY DIRECTED INSTILL ONE DROP IN THE RIGHT EYE FOUR TIMES A DAY DIRECTED SOLD: 07/14/2020 [facility] [phone] mg 07/07/2020 12:00:00 AM EST tablet 30 TAKE ONE TABLET BY MOUTH EVERY DAY TAKE ONE TABLET BY MOUTH EVERY DAY SOLD: 07/08/2020 [facility] [phone] mg 07/07/2020 12:00:00 AM EST tablet 30 TAKE ONE TABLET BY MOUTH EVERY DAY TAKE ONE TABLET BY MOUTH EVERY DAY SOLD: 11/24/2020 [facility] [phone] mg 07/07/2020 12:00:00 AM EST tablet 30 TAKE ONE TABLET BY MOUTH EVERY DAY TAKE ONE TABLET BY MOUTH EVERY DAY SOLD: 09/14/2020 [facility] [phone] mg 07/07/2020 12:00:00 AM EST tablet 30 TAKE ONE TABLET BY MOUTH EVERY DAY TAKE ONE TABLET BY MOUTH EVERY DAY SOLD: 10/16/2020 [facility] 800-150 mg-mg 06/30/2020 12:00:00 AM EDT tablet 30 TAKE ONE TABLET BY MOUTH EVERY DAY WITH FOOD TAKE ONE TABLET BY MOUTH EVERY DAY WITH FOOD SOLD: 10/16/2020 [facility] 800-150 mg-mg 06/30/2020 12:00:00 AM EDT tablet 30 TAKE ONE TABLET BY MOUTH EVERY DAY WITH FOOD TAKE ONE TABLET BY MOUTH EVERY DAY WITH FOOD SOLD: 09/14/2020 [facility] 800-150 mg-mg 06/30/2020 12:00:00 AM EDT tablet 30 TAKE ONE TABLET BY MOUTH EVERY DAY WITH FOOD TAKE ONE TABLET BY MOUTH EVERY DAY WITH FOOD SOLD: 11/24/2020 [facility] 800-150 mg-mg 06/30/2020 12:00:00 AM EDT tablet 30 TAKE ONE TABLET BY MOUTH EVERY DAY WITH FOOD TAKE ONE TABLET BY MOUTH EVERY DAY WITH FOOD SOLD: 07/04/2020 [facility] [phone] mg 05/22/2020 12:00:00 AM EDT tablet 30 TAKE ONE TABLET BY MOUTH EVERY DAY TAKE ONE TABLET BY MOUTH EVERY DAY SOLD: 05/30/2020 [facility] 800-150 mg-mg 12/09/2019 12:00:00 AM EDT tablet 30 TAKE ONE TABLET BY MOUTH EVERY DAY WITH FOOD TAKE ONE TABLET BY MOUTH EVERY DAY WITH FOOD SOLD: 05/30/2020 [facility] Insurance Providers Payer name Policy type / Coverage type Policy ID Covered libertarian ID Covered libertarian's relationship to helms Policy Helms Plan Information [facility] [id number] Spouse [id number] SELF PAY ONLY [id number] [facility] [id number] 2 [id number] D [facility] CHP/Essential Plan S [id number] S [id number] United [employer] Essential Plan P [id number] United Healthcare Essential Plan P [id number] United Healthcare Essential Plan P [id number] S [id number] United Healthcare Essential Plan P [id number] S [id number] [facility] S [id number] S [id number] UNITED HE[employer]CARE [id number] SP [id number] Managed Care [facility] Community Plan P [id number] S [id number] D Managed Care United [employer] S [id number] S [id number] [place] PPO 302/[id number] SP [id number] ANSI-Not a Secondary Insurance [id number] [facility] [id number] 2 [id number] ANSI-Not a Secondary Insurance [id number] ANSI-Not a Secondary Insurance [id number] ANSI-Not a Secondary Insurance [id number] [facility] [id number] 2 [id number] [facility] [id number] 2 [id number] HEALTHNET/ AD O [id number] P [id number] [facility] [id number] S [id number] UN COMMUNITY [employer]AN [facility] [id number] SP [id number] PGBA [facility] [id number] 2 [id number] PMA MANAGEMENT MOISES [facility] [id number] [facility] COMM[facility] [facility] [id number] SP [id number] PMA MANAGEMENT MOISES [facility] [id number] SP [id number] PMA MANAGEMENT MOISES [facility] SP OTHER [employer]EMPL[employer] [id number] SP [id number] Self Pay P UNAVAILABLE S UNAVAILA BLE Problems, Conditions, and Diagnoses Code Display Name Description Problem Type Effective Dates Data Source(s) Z30.09 [id number] control counseling Problem 04/24/2021 12:00:00 AM EDT eCW1 ([facility]) Surgeries/Procedures Procedure Description Date Indications Data Source(s) Imm: Flublok Quadrivalent 18 years & older 0.5mL IM Influenz a 06/14/2021 12:00:00 AM EDT eCW1 ([facility]) INJECTION SINGLE/SOCIAL ECONOMIST TRIGGER POINT 3/> MUSCLES 021 12:00:00 AM EDT MEDENT ([facility], ) Inj, Anesth Agent, Trigeminal 02/27/2021 12:00:00 AM E DT MEDENT ([facility], ) INJECTION ANES OTHER PERIPHERAL NERVE/BRANCH 1 12:00:00 AM EDT MEDENT ([facility], ) OFFICE OUTPATIENT VISIT 25 MINUTES 01/10/2021 12:00:00 AM EDT MEDENT ([facility], ) INJECTION SINGLE/SOCIAL ECONOMIST TRIGGER POINT 3/> MUSCLES 021 12:00:00 AM EDT MEDENT ([facility], ) Inj, Anesth Agent, Trigeminal 12/12/2020 12:00:00 AM E DT MEDENT ([facility], ) INJECTION ANES OTHER PERIPHERAL NERVE/BRANCH 1 12:00:00 AM EDT MEDENT ([facility], ) INJECTION SINGLE/SOCIAL ECONOMIST TRIGGER POINT 3/> MUSCLES 021 12:00:00 AM EST MEDENT ([facility], ) Inj, Anesth Agent, Trigeminal 11/09/2020 12:00:[address] [facility] ([facility], ) INJECTION ANES OTHER PERIPHERAL NERVE/BRANCH 1 12:00:00 AM EST MEDENT ([facility], ) INJECTION SINGLE/SOCIAL ECONOMIST TRIGGER POINT 3/> MUSCLES 021 12:00:00 AM EST MEDENT ([facility], ) Inj, Anesth Agent, Trigeminal 10/10/2020 12:00:[address] [facility] ([facility], ) INJECTION ANES OTHER PERIPHERAL NERVE/BRANCH 1 12:00:00 AM EST MEDENT ([facility], ) Injection, Single Or Multiple trigger points one or two musc les 08/03/2020 12:00:00 AM EST MEDENT ([facility], ) Inj, Anesth Agent, Trigeminal 08/03/2020 12:00:[address] [facility] ([facility], ) INJECTION ANES OTHER PERIPHERAL NERVE/BRANCH 0 12:00:00 AM EST MEDENT ([facility], ) INJECTION SINGLE/SOCIAL ECONOMIST TRIGGER POINT 3/> MUSCLES 020 12:00:00 AM EST MEDENT ([facility]) Inj, Anesth Agent, Trigeminal 07/04/2020 12:00:[address] [facility] ([facility]) INJECTION ANES OTHER PERIPHERAL NERVE/BRANCH 0 12:00:00 AM EST MEDENT ([facility], ) Results ID Date Data Source HIV-1 RNA PCR QUANT [id number] (Viral Load) 06/14/2021 12:00:0 0 AM EDT eCW1 ([facility]) Name Value Range Interpretation Code Description Data Radha rce(s) Supporting Document(s) HIV 1 RNA [Units/volume] (viral load) in Serum or Plasma by Probe with amplification <20 . HIV-1 RNA PCR QUANT 2 [id number] eCW1 ([facility]) ID Date Data Source CD4/CD8 RATIO PROFILE [id number] 06/14/2021 12:00:00 AM EDT eC W1 ([facility]) Name Value Range Interpretation Code Description Data Radha rce(s) Supporting Document(s) Deprecated CD4 in Blood [phone] Abs CD4 Help er eCW1 ([facility]) Abs CD4 [place] 39.4 12.0-35.5 % CD8 Pos Lymph eCW1 ([facility]) % CD8 Pos Lymph 591 109-897 Abs CD8 Suppres eCW1 ([facility]) Abs CD8 Suppres 39.5 30.8-58.5 %CD4 Pos Lymphs eCW1 ([facility]) %CD4 Pos Lymphs 1.00 0.92-3.72 CD4/CD8 Ratio eCW1 ([facility]) CD4/CD8 Ratio 3.0 3.4-10.8 WBC eCW1 ([facility]) WBC 12.2 11.1-15.9 HGB eCW1 ([facility]) HGB 3.98 3.77-5.28 RBC eCW1 ([facility]) RBC 30.7 26.6-33.0 MCH eCW1 ([facility]) MCH 93 79-97 MCV eCW1 ([facility]) MCV 36.9 34.0-46.6 HCT eCW1 ([facility]) HCT 12.1 11.7-15.4 RDW eCW1 ([facility]) RDW 33.1 31.5-35.7 MCHC eCW1 ([facility]) MCHC 252 150-450 Platelets eCW1 ([facility]) Platelets 40 Not Estab. Neutrophils eCW1 ([facility]) Neutrophils 1 Not Estab. Basophils eCW1 ([facility]) Basophils 1 Not Estab. Eosinophils eCW1 ([facility]) Eosinophils 50 Not Estab. Lymphocytes eCW1 ([facility]) Lymphocytes 8 Not Estab. Monocytes eCW1 ([facility]) Monocytes 1.2 1.4-7.0 ABS Neutophils eCW1 ([facility]) ABS Neutophils 0.2 0.1-0.9 ABS Monocytes eCW1 ([facility]) ABS Monocytes 1.5 0.7-3.1 ABS Lymphs eCW1 ([facility]) ABS Lymphs 0.0 0.0-0.2 ABS Basophils eCW1 ([facility]) ABS Basophils 0.0 0.0-0.4 ABS Eosinophils eCW1 ([facility]) ABS Eosinophils ID Date Data Source LIPID PANEL (CARDIAC RISK) 06/14/2021 12:00:00 AM EDT eCW1 ( [facility]) Name Value Range Interpretation Code Description Data Radha rce(s) Supporting Document(s) Triglyceride [Mass/volume] in Serum or Plasma by calculation 88 <150 TRIGLYCERIDES LEVEL W1 ([facility]) TRIGLYCERIDES LEVEL Cholesterol in HDL [Moles/volume] in Serum or Plasma 75 >40 HDL CHOLESTEROL eCW1 ([facility]) HDL CHOLESTEROL Cholesterol [Moles/volume] in Serum or Plasma 244 <200 CHOLESTEROL LEVEL eCW1 ([facility]) CHOLESTEROL LEVEL 3.253 <5 CHOLESTEROL RISK RATIO eC ([facility]) CHOLESTEROL RISK RATIO Cholesterol in LDL [Mass/volume] in Serum or Plasma by calculation 151 <100 LDL CHOLESTEROL eCW1 ([facility]) LDL CHOLESTEROL 169 NON-HDL-C eCW1 ([facility]) NON-HDL-C ID Date Data Source Comprehensive Metabolic Profile (CMP) 06/14/2021 12:00:00 AM EDT eCW1 ([facility]) Name Value Range Interpretation Code Description Data Radha rce(s) Supporting Document(s) 10 7-18 BLOOD UREA NITROGEN eCW1 ([facility]) 92 70-100 GLUCOSE, FASTING eCW1 ([facility]) 0.85 0.55-1.30 CREATININE FOR GFR eCW1 ([facility]) 138 136-145 SODIUM LEVEL eCW1 ([facility]) > 60.0 >60 GLOMERULAR FILTRATION RATE eCW 1 ([facility]) 4.0 3.5-5.1 POTASSIUM SERUM eCW1 ([facility]) 105 98-107 CHLORIDE LEVEL eCW1 ([facility]) 30 21-32 CARBON DIOXIDE LEVEL eCW1 ([facility]) 9.1 8.5-10.1 CALCIUM LEVEL eCW1 ([facility]) 25 12-78 ALT/SGPT eCW1 ([facility]) 15 7-37 AST/SGOT eCW1 ([facility]) 0.4 0.2-1.0 BILIRUBIN,TOTAL eCW1 ([facility]) 7.6 6.4-8.2 TOTAL PROTEIN eCW1 ([facility]) 64 45-117 ALKALINE PHOSPHATASE eCW1 ([facility]) 0.9 1.2-2.2 ALBUMIN/GLOBULIN RATIO eCW1 ([facility]) 3.7 3.2-5.2 ALBUMIN eCW1 ([facility]) ID Date Data Source [id number] 02/13/2021 01:53:00 PM EDT [facility] Name Value Range Interpretation Code Description Data Radha rce(s) Supporting Document(s) SARS-CoV-2 (COVID-19) RNA [Presence] in Respiratory specimen by LASHAE with probe detection Not Detected [facility] This lab was ordered by [facility] and reported by [employer]. ID Date Data Source [id number] 02/06/2021 08:00:00 AM EDT [facility] Name Value Range Interpretation Code Description Data Radha rce(s) Supporting Document(s) SARS-CoV-2 (COVID-19) RNA [Presence] in Respiratory specimen by LASHAE with probe detection Not Detected [facility] This lab was ordered by [facility] and reported by [employer]. ID Date Data Source [id number] 01/16/2021 08:03:00 AM EDT [facility] Name Value Range Interpretation Code Description Data Radha rce(s) Supporting Document(s) SARS-CoV-2 (COVID-19) RNA [Presence] in Respiratory specimen by LASHAE with probe detection Not Detected [facility] This lab was ordered by [facility] and reported by [employer]. ID Date Data Source [id number] 01/09/2021 09:21:00 AM EDT [facility] Name Value Range Interpretation Code Description Data Radha rce(s) Supporting Document(s) SARS-CoV-2 (COVID-19) RNA [Presence] in Respiratory specimen by LASHAE with probe detection Not Detected [facility] This lab was ordered by [facility] and reported by [employer] ID Date Data Source [id number] 12/12/2020 02:54:00 PM EDT [facility] Name Value Range Interpretation Code Description Data Radha rce(s) Supporting Document(s) SARS-CoV-2 (COVID-19) RNA [Presence] in Respiratory specimen by LASHAE with probe detection Not Detected [facility] This lab was ordered by [facility] and reported by [employer]. ID Date Data Source [id number] 11/21/2020 07:02:00 AM EDT [facility] Name Value Range Interpretation Code Description Data Radha rce(s) Supporting Document(s) SARS coronavirus 2 RNA Not Detected [facility] This lab was ordered by [facility] and reported by [employer]. ID Date Data Source [id number] 11/14/2020 12:00:00 PM EDT [facility] Name Value Range Interpretation Code Description Data Radha rce(s) Supporting Document(s) SARS coronavirus 2 RNA Not Detected [facility] This lab was ordered by [facility] and reported by [employer]. ID Date Data Source [id number] 11/07/2020 10:00:00 AM EST [facility] Name Value Range Interpretation Code Description Data Radha rce(s) Supporting Document(s) SARS coronavirus 2 RNA Not Detected [facility] This lab was ordered by [facility] and reported by [facility]. ID Date Data Source [id number] 10/31/2020 03:00:00 PM EST [facility] Name Value Range Interpretation Code Description Data Radha rce(s) Supporting Document(s) SARS coronavirus 2 RNA Not Detected [facility] This lab was ordered by [facility] and reported by [facility]. ID Date Data Source [id number] 10/24/2020 12:30:00 PM EST [facility] Name Value Range Interpretation Code Description Data Radha rce(s) Supporting Document(s) SARS coronavirus 2 RNA Not Detected [facility] This lab was ordered by [facility] and reported by [facility]. ID Date Data Source [id number] 10/19/2020 01:43:00 PM EST [facility] Name Value Range Interpretation Code Description Data Radha rce(s) Supporting Document(s) SARS coronavirus 2 RNA Not Detected [facility] This lab was ordered by [facility] and reported by [facility]. ID Date Data Source [id number] 10/10/2020 03:00:00 PM EST [facility] Name Value Range Interpretation Code Description Data Radha rce(s) Supporting Document(s) SARS coronavirus 2 RNA Not Detected [facility] This lab was ordered by [facility] and reported by [facility]. ID Date Data Source [id number] 10/03/2020 12:55:00 PM EST [facility] Name Value Range Interpretation Code Description Data Radha rce(s) Supporting Document(s) SARS coronavirus 2 RNA Not Detected [facility] This lab was ordered by [facility] and reported by [facility]. ID Date Data Source [id number] 09/26/2020 12:00:00 PM EST [facility] Name Value Range Interpretation Code Description Data Radha rce(s) Supporting Document(s) SARS coronavirus 2 RNA Not Detected [facility] This lab was ordered by [facility] and reported by [facility]. ID Date Data Source [id number] 09/19/2020 10:30:00 AM EST [facility] Name Value Range Interpretation Code Description Data Radha rce(s) Supporting Document(s) SARS coronavirus 2 RNA Not Detected [facility] This lab was ordered by [facility] and reported by [facility]. ID Date Data Source [id number] 09/12/2020 08:30:00 AM EST [facility] Name Value Range Interpretation Code Description Data Radha rce(s) Supporting Document(s) SARS coronavirus 2 RNA Not Detected [facility] This lab was ordered by [facility] and reported by [facility]. ID Date Data Source [id number] 09/05/2020 01:00:00 PM EST [facility] Name Value Range Interpretation Code Description Data Radha rce(s) Supporting Document(s) SARS coronavirus 2 RNA Not Detected [facility] This lab was ordered by [facility] and reported by [facility]. ID Date Data Source [id number] 08/29/2020 03:05:00 PM EST [facility] Name Value Range Interpretation Code Description Data Radha rce(s) Supporting Document(s) SARS coronavirus 2 RNA [facility] This lab was ordered by [facility] and reported by [facility]. ID Date Data Source [id number] 08/22/2020 08:00:00 AM EST [facility] Name Value Range Interpretation Code Description Data Radha rce(s) Supporting Document(s) SARS coronavirus 2 RNA [facility] This lab was ordered by [facility] and reported by [facility]. ID Date Data Source [id number] 08/15/2020 12:27:00 PM EST [facility] Name Value Range Interpretation Code Description Data Radha rce(s) Supporting Document(s) SARS coronavirus 2 RNA [facility] This lab was ordered by [facility] and reported by [facility]. ID Date Data Source [id number] 08/11/2020 12:10:00 PM EST [facility] Name Value Range Interpretation Code Description Data Radha rce(s) Supporting Document(s) SARS coronavirus 2 RNA [facility] This lab was ordered by [facility] and reported by [facility]. ID Date Data Source [id number] 08/01/2020 12:00:00 PM EST [facility] Name Value Range Interpretation Code Description Data Radha rce(s) Supporting Document(s) SARS coronavirus 2 RNA [facility] This lab was ordered by [facility] and reported by [facility]. ID Date Data Source [id number] 07/26/2020 09:37:00 AM EST [facility] Name Value Range Interpretation Code Description Data Radha rce(s) Supporting Document(s) SARS coronavirus 2 RNA [facility] This lab was ordered by [facility] and reported by [facility]. ID Date Data Source [id number] 07/18/2020 10:30:00 AM EST [facility] Name Value Range Interpretation Code Description Data Radha rce(s) Supporting Document(s) SARS coronavirus 2 RNA [facility] This lab was ordered by [facility] and reported by [facility]. ID Date Data Source [id number] 07/11/2020 10:00:00 AM EST [facility] Name Value Range Interpretation Code Description Data Radha rce(s) Supporting Document(s) SARS coronavirus 2 RNA [facility] This lab was ordered by [facility] and reported by [facility]. ID Date Data Source [id number] 07/06/2020 04:13:09 AM EST eCW1 ([facility]) Name Value Range Interpretation Code Description Data Radha rce(s) Supporting Document(s) Hemoglobin A1c/Hemoglobin.total in Blood 5.5 HEMOGLOBIN A1c eCW1 ([facility]) ID Date Data Source [id number] 07/04/2020 09:20:00 AM EST [facility] Name Value Range Interpretation Code Description Data Radha rce(s) Supporting Document(s) SARS coronavirus 2 RNA [facility] This lab was ordered by [facility] and reported by [facility]. ID Date Data Source [id number] 06/27/2020 02:00:00 PM EDT [facility] Name Value Range Interpretation Code Description Data Radha rce(s) Supporting Document(s) SARS coronavirus 2 RNA [facility] This lab was ordered by [facility] and reported by [facility]. ID Date Data Source [id number] 06/23/2020 01:00:00 PM EDT [facility] Name Value Range Interpretation Code Description Data Radha rce(s) Supporting Document(s) SARS coronavirus 2 RNA [facility] This lab was ordered by [facility] and reported by [facility]. ID Date Data Source [id number] 06/08/2020 12:00:00 PM EDT [facility] Name Value Range Interpretation Code Description Data Radha rce(s) Supporting Document(s) SARS coronavirus 2 RNA [facility] This lab was ordered by [facility] and reported by [facility]. ID Date Data Source [id number] 05/30/2020 10:56:00 AM EDT [facility] Name Value Range Interpretation Code Description Data Radha rce(s) Supporting Document(s) SARS coronavirus 2 RNA [facility] This lab was ordered by [facility] and reported by [facility]. Procedure Social History Code Duration Value Status Description Data Source(s ) Smoking 07/16/2021 12:00:00 AM EST Never Smoker completed Never S moker eCW1 ([facility]) Smoking 07/16/2021 12:00:00 AM EST Never Smoker completed Never S moker eCW1 ([facility]) Smoking 06/14/2021 12:00:00 AM EDT Never Smoker completed Never S moker eCW1 ([facility]) Smoking 05/02/2021 12:00:00 AM EDT Never Smoker completed Never S moker eCW1 ([facility]) Smoking 05/02/2021 12:00:00 AM EDT Never Smoker completed Never S moker eCW1 ([facility]) Smoking 05/02/2021 12:00:00 AM EDT Never Smoker completed Never S moker eCW1 ([facility]) Smoking 04/24/2021 12:00:00 AM EDT Never Smoker completed Never S moker eCW1 ([facility]) Smoking 01/02/2021 12:00:00 AM EDT Never Smoker completed Never S moker eCW1 ([facility]) Smoking 01/02/2021 12:00:00 AM EDT Never Smoker completed Never S moker eCW1 ([facility]) Smoking 09/20/2020 12:00:00 AM EST Non Smoker completed Non Smoke r MEDENT ([facility], ) Smoking 07/06/2020 12:00:00 AM EST Never Smoker completed Never S moker eCW1 ([facility]) Vital Signs ID Date Data Source UNK Name Value Range Interpretation Code Description Data Source(s) Body weight 176 [lb_av] 176 [lb_av] eCW1 ([facility]) Body height 66 [in_i] 66 [in_i] eCW1 ([facility]) Body mass index (BMI) [Ratio] 28.4 kg/m2 28.4 k g/m2 eCW1 ([facility]) Systolic blood pressure 120 mm[Hg] 120 mm[Hg] e CW1 ([facility]) Diastolic blood pressure 80 mm[Hg] 80 mm[Hg] eCW1 ([facility]) Body weight 176 [lb_av] 176 [lb_av] eCW1 ([facility]) Body weight 79.83 kg 79.83 kg eCW1 ([facility]) Body height 66 [in_i] 66 [in_i] eCW1 ([facility]) Body mass index (BMI) [Ratio] 28.40 kg/m2 28.40 kg/m2 eCW1 ([facility]) Heart rate 93 /min 93 /min eCW1 ([facility]) Respiratory rate 18 /min 18 /min eCW1 ([facility]) Body temperature 97.6 [degF] 97.6 [degF] eCW1 ( [facility]) Systolic blood pressure 114 mm[Hg] 114 mm[Hg] e CW1 ([facility]) Diastolic blood pressure 62 mm[Hg] 62 mm[Hg] eCW1 ([facility]) Body weight 178 [lb_av] 178 [lb_av] eCW1 ([facility]) Systolic blood pressure 104 mm[Hg] 104 mm[Hg] e CW1 ([facility]) Diastolic blood pressure 62 mm[Hg] 62 mm[Hg] eCW1 ([facility]) Body height 66 [in_i] 66 [in_i] eCW1 ([facility]) Body mass index (BMI) [Ratio] 28.73 kg/m2 28.73 kg/m2 eCW1 ([facility]) Body weight 178 [lb_av] 178 [lb_av] eCW1 ([facility]) Body weight 80.74 kg 80.74 kg eCW1 ([facility]) Body height 66 [in_i] 66 [in_i] eCW1 ([facility]) Body mass index (BMI) [Ratio] 28.73 kg/m2 28.73 kg/m2 eCW1 ([facility]) Heart rate 81 /min 81 /min eCW1 ([facility]) Respiratory rate 18 /min 18 /min eCW1 ([facility]) Body temperature 97.3 [degF] 97.3 [degF] eCW1 ( [facility]) Systolic blood pressure 124 mm[Hg] 124 mm[Hg] e CW1 ([facility]) Diastolic blood pressure 74 mm[Hg] 74 mm[Hg] eCW1 ([facility]) Body temperature 98.0 [degF] 98.0 [degF] MEDENT ([facility], ) Systolic blood pressure 122 mm[Hg] 122 mm[Hg] M EDENT ([facility], ) Diastolic blood pressure 82 mm[Hg] 82 mm[Hg] MEDENT ([facility], ) Heart rate 70 /min 70 /min MEDENT ([facility] ) Respiratory rate 16 /min 16 /min MEDENT ( [facility], ) Body height 66 [in_i] 66 [in_i] MEDENT ([facility], ) 5'6" Body weight 188.00 [lb_av] 188.00 [lb_av] MEDEN T ([facility]) Body mass index (BMI) [Ratio] 30.3 kg/m2 30.3 k g/m2 [facility] [place] body weight 130 [lb_av] 130 [lb_av] MEDEN T ([facility]) Body weight 85.277 kg 85.277 kg [facility] ([facility]) Oxygen saturation in Arterial blood by Pulse oximetry 100 % 100 % [facility] ([facility]) Body surface area Derived from formula 1.95 m2 1.95 m2 [facility] ([facility]) Respiratory rate 12 /min 12 /min [facility] ( [facility]) Body height 66 [in_i] 66 [in_i] [facility] ([facility]) 5'6" Body weight 169.00 [lb_av] 169.00 [lb_av] MEDEN T ([facility]) Body mass index (BMI) [Ratio] 27.3 kg/m2 27.3 k g/m2 [facility] ([facility]) [place] body weight 130 [lb_av] 130 [lb_av] MEDEN T ([facility]) Body height 66 [in_i] 66 [in_i] [facility] ([facility]) 5'6" Respiratory rate 14 /min 14 /min [facility] ( [facility]) Body temperature 97.4 [degF] 97.4 [degF] [facility] ([facility]) Body weight 188.00 [lb_av] 188.00 [lb_av] MEDEN T ([facility]) Body mass index (BMI) [Ratio] 30.3 kg/m2 30.3 k g/m2 [facility] ([facility]) Systolic blood pressure 122 mm[Hg] 122 mm[Hg] EDENT ([facility]) Diastolic blood pressure 78 mm[Hg] 78 mm[Hg] [facility] ([facility]) Heart rate 76 /min 76 /min [facility] ([facility]) Oxygen saturation in Arterial blood by Pulse oximetry 100 % 100 % MEDENT ([facility]) [place] body weight 130 [lb_av] 130 [lb_av] MEDEN T ([facility]) Body weight 85.277 kg 85.277 kg [facility] ([facility]) Body surface area Derived from formula 1.95 m2 1.95 m2 [facility] ([facility]) Body mass index (BMI) [Ratio] 30.02 kg/m2 30.02 kg/m2 eCW1 ([facility]) Body weight 186 [lb_av] 186 [lb_av] eCW1 ([facility]) Heart rate 92 /min 92 /min W1 ([facility]) Body height 66 [in_i] 66 [in_i] eCW1 ([facility]) Body temperature 98.8 [degF] 98.8 [degF] eCW1 ( [facility]) Systolic blood pressure 104 mm[Hg] 104 mm[Hg] e CW1 ([facility]) Respiratory rate 18 /min 18 /min eCW1 ([facility]) Diastolic blood pressure 62 mm[Hg] 62 mm[Hg] eCW1 ([facility]) Systolic blood pressure 116 mm[Hg] 116 mm[Hg] M EDENT ([facility]) Diastolic blood pressure 63 mm[Hg] 63 mm[Hg] MEDENT ([facility]) Heart rate 78 /min 78 /min [facility] ([facility]) Oxygen saturation in Arterial blood by Pulse oximetry 99 % 99 % [facility]) Respiratory rate 18 /min 18 /min [facility] ( [facility]) Body temperature 96.9 [degF] 96.9 [degF] [facility]) Body height 66 [in_i] 66 [in_i] [facility] ([facility]) 5'6" Body weight 188.00 [lb_av] 188.00 [lb_av] MEDEN T ([facility]) Body mass index (BMI) [Ratio] 30.3 kg/m2 30.3 k g/m2 MEDENT ([facility]) [place] body weight 130 [lb_av] 130 [lb_av] MEDEN T ([facility]) Body weight 85.277 kg 85.277 kg [facility] ([facility]) Body surface area Derived from formula 1.95 m2 1.95 m2 [facility] ([facility]) Systolic blood pressure 142 mm[Hg] 142 mm[Hg] M EDENT ([facility]) Body temperature 97.2 [degF] 97.2 [degF] MEDENT ([facility]) Diastolic blood pressure 82 mm[Hg] 82 mm[Hg] [facility] Heart rate 74 /min 74 /min [facility] ([facility]) Respiratory rate 14 /min 14 /min [facility] Body weight 188.00 [lb_av] 188.00 [lb_av] MEDEN T ([facility]) Body height 66 [in_i] 66 [in_i] [facility] ([facility]) 5'6" Body surface area Derived from formula 1.95 m2 1.95 m2 [facility] ([facility]) Body weight 85.277 kg 85.277 kg [facility] ([facility]) Body mass index (BMI) [Ratio] 30.3 kg/m2 30.3 k g/m2 [facility] [place] body weight 130 [lb_av] 130 [lb_av] MEDEN T ([facility]) Body height 66 [in_i] 66 [in_i] MEDENT ([facility]) 5'6" [place] body weight 130 [lb_av] 130 [lb_av] MEDEN T ([facility]) Body mass index (BMI) [Ratio] 27.3 kg/m2 27.3 k g/m2 [facility] ([facility]) Body weight 169.00 [lb_av] 169.00 [lb_av] MEDEN T ([facility]) Respiratory rate 12 /min 12 /min [facility]) Body weight 185 [lb_av] 185 [lb_av] eCW1 ([facility]) Body height 66 [in_i] 66 [in_i] eCW1 ([facility]) Body mass index (BMI) [Ratio] 29.86 kg/m2 29.86 kg/m2 eCW1 ([facility]) Heart rate 86 /min 86 /min eCW1 ([facility]) Respiratory rate 18 /min 18 /min eCW1 ([facility]) Body temperature 97.1 [degF] 97.1 [degF] eCW1 ( [facility]) Systolic blood pressure 108 mm[Hg] 108 mm[Hg] e CW1 ([facility]) Diastolic blood pressure 72 mm[Hg] 72 mm[Hg] eCW1 ([facility]) Patient Treatment Plan of Care Planned Activity Planned Date Details Description Data Source (s) Metronidazole 0.0075 MG/MG Vaginal Gel 07/16/2021 12:00:00 AM EST eCW1 ([facility]) Metronidazole 0.0075 MG/MG Vaginal Gel 07/16/2021 12:00:00 AM EST eCW1 ([facility]) Fluconazole 150 MG Oral Tablet 06/14/2021 12:00:00 AM EDT eCW1 ([facility]) Fluconazole 150 MG Oral Tablet 05/14/2021 12:00:00 AM EDT eCW1 ([facility])
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
[2021-07-24] MEDS ORDERED: MORPHINE 2 MG/ML 1ML VIAL (J2270) IV ONE (03:35)
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
[2021-07-24 04:22] LABS: BASO % 0.5 % (0.0-1.0); EOS # 0.1 10^3/uL (0.0-0.5); EOS % 1.3 % (0.0-3.0); HEMATOCRIT 32.9 % (36.0-47.0); HEMOGLOBIN 11.1 g/dl (12.0-15.5); LYMPH # 1.7 10^3/uL (1.5-5.0); LYMPH % 45.4 % (24.0-44.0); MEAN CORPUSCULAR HGB CONC 33.7 g/dl (32.0-36.5); MEAN CORPUSCULAR VOLUME 91.9 fl (80.0-96.0); MONO # 0.4 10^3/uL (0.0-0.8); MONO % 9.7 % (2.0-8.0); NEUTROPHILS # 1.6 10^3/uL (1.5-8.5); NEUTROPHILS % 43.1 % (36.0-66.0); PLATELET COUNT, AUTOMATED 201 10^3/uL (150-450); RED BLOOD COUNT 3.58 10^6/uL (4.00-5.40); WHITE BLOOD COUNT 3.8 10^3/uL (4.0-10.0)
[2021-07-24 04:58] LABS: CK-MB VALUE MASS < 1.0 NG/ML (<3.6); CPK CREATINE PHOSPHOKINASE 112 U/L (26-192); MB/CK RELATIVE INDEX 0.89 (< OR =4); TROPONIN I < 0.02 NG/ML (< 0.10)
[2021-07-24 05:03] LABS: ALBUMIN 3.6 GM/DL (3.2-5.2); ALT/SGPT 20 U/L (12-78); BILIRUBIN,TOTAL 0.6 MG/DL (0.2-1.0); BLOOD UREA NITROGEN 11 MG/DL (7-18); CALCIUM LEVEL 8.9 MG/DL (8.5-10.1); CARBON DIOXIDE LEVEL 29 MEQ/L (21-32); CHLORIDE LEVEL 104 MEQ/L (98-107); CREATININE FOR GFR 0.82 MG/DL (0.55-1.30); GLOMERULAR FILTRATION RATE > 60.0 (>60); GLUCOSE, FASTING 94 MG/DL (70-100); LIPASE 68 U/L (73-393); POTASSIUM SERUM 3.5 MEQ/L (3.5-5.1); SODIUM LEVEL 137 MEQ/L (136-145); TOTAL PROTEIN 7.3 GM/DL (6.4-8.2)
[2021-07-24 05:43] VITALS: BP 123/63
--- NOTE | 2021-07-24 06:39 | ECGEPIP ---
[facility] - ED Test Date: 2021-07-24 Pat Name: RYDER HERNANDEZ Department: Room: - Gender: Female [employer] Operator: DIMAS : 1980 Requested By: NATALIE Saldaña Order Number: [id number] Reading MD: Brian Jones Measurements Intervals Morrison Rate: 50 P: 61 IA: 244 QRS: 14 QRSD: 98 T: 20 QT: 446 QTc: 406 Interpretive Statements Sinus bradycardia with 1st degree AV block Nonspecific ST T wave changes No prior ECG for comparison Electronically Signed on 07-24-2021 6:39:07 EST by Brian Jones
== END 2021-07-24 05:45 | disposition home or self-care (01) ==
LOC: M ED 19:51
DX: S20.312A Abrasion of left front wall of thorax, initial encounter (principal); V49.49XA Driver injured in collision with other motor vehicles in traffic accident, initial encounter; Y92.410 Unspecified street and highway as the place of occurrence of the external cause
CPT/HCPCS: 70450; 71046; 71250; 72125; 73030; 73564; 74176; 80053; 82550; 82553; 83690; 84484; 85025; 93005; 96374; 99284; J2270

== ENCOUNTER → 2021-07-30 | Outpatient (REF) | LOC: M LAB 13:51 | PROVIDERS: ATTEND Nurse Practitioner Adult Health | DX: Z11.52 Encounter for screening for COVID-19 (principal) ==

== ENCOUNTER → 2021-08-20 | Outpatient (REF) | LOC: M LAB 14:00 | PROVIDERS: ATTEND Nurse Practitioner Adult Health | DX: Z11.8 Encounter for screening for other infectious and parasitic diseases (principal) ==

== ENCOUNTER → 2021-10-16 | Outpatient (CLI) | payer OTHER ==
[2021-10-16 13:57] LABS: APPEARANCE, URINE CLEAR (CLEAR); BACTERIA, URINE AUTO NEGATIVE (NEGATIVE); BILIRUBIN, URINE AUTO NEGATIVE (NEGATIVE); BLOOD, URINE BLOOD NEGATIVE (NEGATIVE); COLOR, URINE YELLOW (YELLOW); GLUCOSE, URINE (UA) AUTO NEGATIVE (NEGATIVE); KETONE, URINE AUTO NEGATIVE (NEGATIVE); LEUKOCYTE ESTERASE, URINE AUTO NEGATIVE (NEGATIVE); MUCUS, URINE SMALL (NEGATIVE); NITRITE, URINE AUTO NEGATIVE (NEGATIVE); PROTEIN, URINE AUTO NEGATIVE (NEGATIVE); RBC, URINE AUTO 0 /HPF (0-3); SPECIFIC GRAVITY URINE AUTO 1.023 (1.002-1.035); SQUAMOUS EPITHELIAL CELL UR AU 0 /HPF (0-6); UROBILINOGEN, URINE AUTO 0.2 mg/dL (0.0-2.0); WBC, URINE AUTO 1 /HPF (0-3)
[2021-10-16 14:37] LABS: ALT/SGPT 27 U/L (12-78); BILIRUBIN,TOTAL 0.5 MG/DL (0.2-1.0); BLOOD UREA NITROGEN 11 MG/DL (7-18); CALCIUM LEVEL 8.7 MG/DL (8.5-10.1); CARBON DIOXIDE LEVEL 27 MEQ/L (21-32); CHLORIDE LEVEL 105 MEQ/L (98-107); CHOLESTEROL LEVEL 255 MG/DL (<200); CHOLESTEROL RISK RATIO 3.541 (<5); CREATININE FOR GFR 0.68 MG/DL (0.55-1.30); GLOMERULAR FILTRATION RATE > 60.0 (>60); GLUCOSE, FASTING 90 MG/DL (70-100); HDL CHOLESTEROL 72 MG/DL (>40); LDL CHOLESTEROL 164 MG/DL (<100); NON-HDL-C 183 MG/DL; POTASSIUM SERUM 3.9 MEQ/L (3.5-5.1); SODIUM LEVEL 139 MEQ/L (136-145); TOTAL PROTEIN 7.6 GM/DL (6.4-8.2); TRIGLYCERIDES LEVEL 94 MG/DL (<150)
[2021-10-16 15:31] LABS: GC DNA AMPLIFICATION NEGATIVE (NEGATIVE)
[2021-10-18 06:08] LABS: % CD8 Pos Lymph 39.2 % (12.0-35.5); %CD4 Pos Lymphs 40.5 % (30.8-58.5); ABS Lymphs 1.6 x10E3/uL (0.7-3.1); ABS Monocytes 0.2 x10E3/uL (0.1-0.9); ABS Neutophils 0.9 x10E3/uL (1.4-7.0); Abs CD4 Helper 648 /uL (359-1519); Abs CD8 Suppres 627 /uL (109-897); CD4/CD8 Ratio 1.03 (0.92-3.72); Eosinophils 1 % (Not Estab.); HCT 35.6 % (34.0-46.6); HGB 11.9 g/dL (11.1-15.9); HIV-1 RNA PCR QUANT 2 LC550285 <20 copies/mL (.); Immature Grans 0 % (Not Estab.); Lymphocytes 60 % (Not Estab.); MCH 31.2 pg (26.6-33.0); MCHC 33.4 g/dL (31.5-35.7); MCV 93 fL (79-97); Monocytes 6 % (Not Estab.); Neutrophils 32 % (Not Estab.); Platelets 207 x10E3/uL (150-450); RBC 3.82 x10E6/uL (3.77-5.28); RDW 11.9 % (11.7-15.4); WBC 2.7 x10E3/uL (3.4-10.8)
== END ==
LOC: M PLALAB 10:50
PROVIDERS: ATTEND Internal Medicine Infectious Disease
DX: B20 Human immunodeficiency virus [HIV] disease (principal)

== ENCOUNTER → 2022-05-14 | Outpatient (CLI) | payer OTHER ==
[2022-05-14 14:37] LABS: ALBUMIN 3.9 GM/DL (3.2-5.2); ALT/SGPT 33 U/L (12-78); BILIRUBIN,TOTAL 0.4 MG/DL (0.2-1.0); BLOOD UREA NITROGEN 11 MG/DL (7-18); CALCIUM LEVEL 9.1 MG/DL (8.5-10.1); CARBON DIOXIDE LEVEL 27 MEQ/L (21-32); CHLORIDE LEVEL 103 MEQ/L (98-107); CHOLESTEROL LEVEL 279 MG/DL (<200); CHOLESTEROL RISK RATIO 3.321 (<5); CREATININE FOR GFR 0.78 MG/DL (0.55-1.30); GLOMERULAR FILTRATION RATE > 60.0 (>60); GLUCOSE, FASTING 90 MG/DL (70-100); HDL CHOLESTEROL 84 MG/DL (>40); LDL CHOLESTEROL 178 MG/DL (<100); NON-HDL-C 195 MG/DL; POTASSIUM SERUM 4.2 MEQ/L (3.5-5.1); SODIUM LEVEL 135 MEQ/L (136-145); TOTAL PROTEIN 7.7 GM/DL (6.4-8.2); TRIGLYCERIDES LEVEL 83 MG/DL (<150)
[2022-05-15 17:07] LABS: % CD8 Pos Lymph 41.3 % (12.0-35.5); %CD4 Pos Lymphs 38.9 % (30.8-58.5); ABS Lymphs 1.6 x10E3/uL (0.7-3.1); ABS Monocytes 0.3 x10E3/uL (0.1-0.9); ABS Neutophils 1.1 x10E3/uL (1.4-7.0); Abs CD4 Helper 622 /uL (359-1519); Abs CD8 Suppres 661 /uL (109-897); CD4/CD8 Ratio 0.94 (0.92-3.72); Eosinophils 1 % (Not Estab.); HCT 35.3 % (34.0-46.6); HIV-1 RNA PCR QUANT 2 LC550285 <20 copies/mL (.); Immature Grans 0 % (Not Estab.); Lymphocytes 52 % (Not Estab.); MCH 31.3 pg (26.6-33.0); MCV 92 fL (79-97); Monocytes 10 % (Not Estab.); Neutrophils 37 % (Not Estab.); Platelets 207 x10E3/uL (150-450); RBC 3.83 x10E6/uL (3.77-5.28); RDW 11.7 % (11.7-15.4)
== END ==
LOC: M PLALAB 09:19
PROVIDERS: ATTEND Internal Medicine Infectious Disease
DX: B20 Human immunodeficiency virus [HIV] disease (principal)

== ENCOUNTER → 2022-11-14 | Outpatient (CLI) | payer OTHER ==
[2022-11-14 15:52] LABS: ALBUMIN 3.6 G/DL (3.2-5.2); ALKALINE PHOSPHATASE 44 U/L (46-116); ALT/SGPT 16 U/L (7.0-40); AST/SGOT 16 U/L (<34); BILIRUBIN,TOTAL 0.6 MG/DL (0.3-1.2); BLOOD UREA NITROGEN 8 MG/DL (9-23); CALCIUM LEVEL 8.7 MG/DL (8.5-10.1); CARBON DIOXIDE LEVEL 25 MMOL/L (20-31); CHLORIDE LEVEL 105 MMOL/L (98-107); CHOLESTEROL LEVEL 237 MG/DL (<200); CHOLESTEROL RISK RATIO 2.87 (<5); CREATININE FOR GFR 0.55 MG/DL (0.55-1.30); GLOMERULAR FILTRATION RATE > 60.0 (>60); GLUCOSE, FASTING 84 MG/DL (60-100); HDL CHOLESTEROL 82.3 MG/DL (>40); LDL CHOLESTEROL 129.9 MG/DL (<100); NON-HDL-C 154.7 MG/DL; POTASSIUM SERUM 3.7 MMOL/L (3.5-5.1); SODIUM LEVEL 134 MMOL/L (136-145); TOTAL PROTEIN 6.9 G/DL (5.7-8.2); TRIGLYCERIDES LEVEL 124 MG/DL (<150)
== END ==
LOC: M PLALAB 11:00
PROVIDERS: ATTEND Internal Medicine Infectious Disease
DX: B20 Human immunodeficiency virus [HIV] disease (principal)

== ENCOUNTER → 2022-11-14 | Outpatient (CLI) | payer OTHER ==
[2022-11-14 14:48] LABS: HEMATOCRIT 30.5 % (36.0-47.0); HEMOGLOBIN 10.4 g/dl (12.0-15.5); MEAN CORPUSCULAR HEMOGLOBIN 31.9 pg (27.0-33.0); MEAN CORPUSCULAR HGB CONC 34.1 g/dl (32.0-36.5); MEAN CORPUSCULAR VOLUME 93.6 fl (80.0-96.0); PLATELET COUNT, AUTOMATED 210 10^3/uL (150-450); RED BLOOD COUNT 3.26 10^6/uL (4.00-5.40); WHITE BLOOD COUNT 4.2 10^3/uL (4.0-10.0)
[2022-11-14 15:13] LABS: CREATININE,RANDOM URINE 106.9 MG/DL
[2022-11-14 16:03] LABS: GC DNA AMPLIFICATION NEGATIVE (NEGATIVE)
[2022-11-14 16:22] LABS: LDH LACTATE DEHYDROGENASE 128 U/L (120-246)
[2022-11-14 16:24] LABS: ALT/SGPT 16 U/L (7.0-40); AST/SGOT 15 U/L (<34); BILIRUBIN,TOTAL 0.5 MG/DL (0.3-1.2); CREATININE FOR GFR 0.54 MG/DL (0.55-1.30); GLOMERULAR FILTRATION RATE > 60.0 (>60)
== END ==
LOC: M PLALAB 10:58
PROVIDERS: ATTEND Advanced Practice Midwife
DX: O09.522 Supervision of elderly multigravida, second trimester (principal)

== ENCOUNTER → 2022-12-18 | Outpatient (CLI) | payer OTHER | LOC: M WHC 06:45 | PROVIDERS: ATTEND Advanced Practice Midwife | DX: O09.522 Supervision of elderly multigravida, second trimester (principal) ==

== ENCOUNTER → 2023-02-04 | Outpatient (CLI) | payer OTHER ==
[2023-02-04 16:59] LABS: HEMATOCRIT 30.5 % (36.0-47.0); HEMOGLOBIN 10.8 g/dl (12.0-15.5); MEAN CORPUSCULAR HEMOGLOBIN 34.3 pg (27.0-33.0); MEAN CORPUSCULAR HGB CONC 35.4 g/dl (32.0-36.5); MEAN CORPUSCULAR VOLUME 96.8 fl (80.0-96.0); PLATELET COUNT, AUTOMATED 167 10^3/uL (150-450); RED BLOOD COUNT 3.15 10^6/uL (4.00-5.40); WHITE BLOOD COUNT 4.9 10^3/uL (4.0-10.0)
[2023-02-04 17:23] LABS: TOTAL PROTEIN,RANDOM URINE 13.6 MG/DL (0.0-14.0)
[2023-02-04 17:28] LABS: ALBUMIN 2.8 G/DL (3.2-5.2); ALKALINE PHOSPHATASE 61 U/L (46-116); ALT/SGPT 56 U/L (7.0-40); AST/SGOT 40 U/L (<34); BILIRUBIN,TOTAL 0.5 MG/DL (0.3-1.2); BLOOD UREA NITROGEN 6 MG/DL (9-23); CALCIUM LEVEL 8.6 MG/DL (8.5-10.1); CARBON DIOXIDE LEVEL 26 MMOL/L (20-31); CHLORIDE LEVEL 102 MMOL/L (98-107); CREATININE FOR GFR 0.64 MG/DL (0.55-1.30); CREATININE,RANDOM URINE 68.2 MG/DL; GLOMERULAR FILTRATION RATE > 60.0 (>58); GLUCOSE CHALLENGE TEST 1 HOUR 87 MG/DL (LESS THAN 140); GLUCOSE, FASTING 87 MG/DL (60-100); POTASSIUM SERUM 3.1 MMOL/L (3.5-5.1); SODIUM LEVEL 136 MMOL/L (136-145)
[2023-02-04 18:28] LABS: GC DNA AMPLIFICATION NEGATIVE (NEGATIVE)
== END ==
LOC: M PLALAB 13:17
PROVIDERS: ATTEND Obstetrics & Gynecology
DX: O09.522 Supervision of elderly multigravida, second trimester (principal)

== ENCOUNTER → 2023-02-20 | Outpatient (CLI) | payer OTHER ==
[2023-02-21 13:09] LABS: % CD8 Pos Lymph 46.6 % (12.0-35.5); %CD4 Pos Lymphs 40.4 % (30.8-58.5); ABS Eosinophils 0.1 x10E3/uL (0.0-0.4); ABS Lymphs 1.6 x10E3/uL (0.7-3.1); ABS Monocytes 0.5 x10E3/uL (0.1-0.9); ABS Neutophils 2.9 x10E3/uL (1.4-7.0); Abs CD4 Helper 646 /uL (359-1519); Abs CD8 Suppres 746 /uL (109-897); CD4/CD8 Ratio 0.87 (0.92-3.72); Eosinophils 1 % (Not Estab.); HCT 30.8 % (34.0-46.6); HGB 10.9 g/dL (11.1-15.9); Immature Grans 0 % (Not Estab.); Lymphocytes 33 % (Not Estab.); MCH 33.2 pg (26.6-33.0); MCHC 35.4 g/dL (31.5-35.7); MCV 94 fL (79-97); Monocytes 9 % (Not Estab.); Neutrophils 57 % (Not Estab.); Platelets 203 x10E3/uL (150-450); RBC 3.28 x10E6/uL (3.77-5.28); RDW 12.2 % (11.7-15.4)
[2023-02-21 16:09] LABS: HIV-1 RNA PCR QUANT 2 LC550285 20 copies/mL (.); HIV-1 RNA PCR QUANT 3 LC550285 1.301 (.)
== END ==
LOC: M PLALAB 08:40
PROVIDERS: ATTEND Internal Medicine Infectious Disease
DX: B20 Human immunodeficiency virus [HIV] disease (principal)

== ENCOUNTER → 2023-04-02 | Outpatient (CLI) | payer OTHER | LOC: M PLALAB 11:00 | PROVIDERS: ATTEND Obstetrics & Gynecology | DX: O34.211 Maternal care for low transverse scar from previous cesarean delivery (principal); Z3A.00 Weeks of gestation of pregnancy not specified ==

== ENCOUNTER → 2023-04-09 | Outpatient (CLI) | payer OTHER ==
[2023-04-10 16:09] LABS: HIV-1 RNA PCR QUANT 2 LC550285 <20 copies/mL (.)
== END ==
LOC: M PLALAB 08:01
PROVIDERS: ATTEND Internal Medicine Infectious Disease
DX: B20 Human immunodeficiency virus [HIV] disease (principal)

== ENCOUNTER 2023-04-23 18:16 | Inpatient (IN) | payer OTHER ==
[~2023-04-23] VITALS: Ht 167.6 cm; Wt 87.0 kg
[2023-04-23] MEDS: LR 1,000 ML IV SCH (01:00)
[~2023-04-23 18:16] MED LIST changes: -ACET-683 PO; -COLA100C5 PO; -IBUP80TA PO; -OXYC-517 PO; -PRENTAB9 PO
[2023-04-23] MEDS: hydrALAZINE 20MG/ML 1ML VIAL IV ONE ×2 (18:35→19:35)
[2023-04-23] MEDS ORDERED: PRENTAB9 PO (18:35)
[2023-04-23] MEDS ORDERED: HOME MED LIST COMPLETE! XX SCH (18:40)
[2023-04-23 18:48] VITALS: BP 173/97
[2023-04-23] MEDS ORDERED: TRANEXAMIC ACID INJection 1,000 MG in NS 100 ML IV PRN (19:05)
[2023-04-23] MEDS ORDERED: CARBOPROST TROMETHAMINE 250 MCG/ML AMP IM PRN (19:05)
[2023-04-23] MEDS ORDERED: LIDOCAINE 1% MDV 20ML VIAL INFIL PRN (19:05)
[2023-04-23] MEDS ORDERED: LR 1,000 ML IV SCH (19:05)
[2023-04-23] MEDS ORDERED: CALCIUM GLUCONATE 1,000 MG in D5W MINI-BAG PLUS 100 ML IV PRN (19:05)
[2023-04-23] MEDS ORDERED: OXYTOCIN INJ 10UNITS/ML 1ML VIAL IM PRN (19:05)
[2023-04-23] MEDS ORDERED: MAG Sulf (L&D) 4 GM/100 ML 4 GM in IV 1 EA IV ONE (19:05)
[2023-04-23] MEDS ORDERED: OXYTOCIN DRIP 30 UNITS in IV 1 EA IV PRN ×4 (19:05)
[2023-04-23] MEDS ORDERED: OXYTOCIN DRIP 30 UNITS in IV 1 EA IV SCH ×2 (19:05→22:45)
[2023-04-23 19:08] VITALS: BP 190/106
[2023-04-23 19:26] VITALS: BP 183/110
[2023-04-23] MEDS ORDERED: hydrALAZINE 20MG/ML 1ML VIAL As Ordered ONE (19:30)
[2023-04-23 19:35] VITALS: BP 181/106
[2023-04-23] MEDS ORDERED: MAGNESIUM *L&D* 4GM/100ML BAG (40MG/ML) As Ordered ONE (19:39)
[2023-04-23 19:53] VITALS: BP 142/101
[2023-04-23] MEDS: MAG Sulf (OBGYN) 20GM/500ML 20,000 MG in IV 1 EA IV SCH (20:14)
[2023-04-23 20:17] LABS: MEAN CORPUSCULAR HEMOGLOBIN 32.2 pg (27.0-33.0); MEAN CORPUSCULAR HGB CONC 35.3 g/dl (32.0-36.5); MEAN CORPUSCULAR VOLUME 91.2 fl (80.0-96.0); PLATELET COUNT, AUTOMATED 211 10^3/uL (150-450); RED BLOOD COUNT 3.73 10^6/uL (4.00-5.40); WHITE BLOOD COUNT 4.1 10^3/uL (4.0-10.0)
[2023-04-23 20:38] LABS: ALT/SGPT 17 U/L (7.0-40); AST/SGOT 20 U/L (<34); BILIRUBIN,TOTAL 0.4 MG/DL (0.3-1.2); CREATININE FOR GFR 0.66 MG/DL (0.55-1.30); GLOMERULAR FILTRATION RATE > 60.0 (>58); LDH LACTATE DEHYDROGENASE 164 U/L (120-246)
[2023-04-23] MEDS ORDERED: PHENYLephrine 500MCG 5ML (100MCG/ML) SYRINGE As Ordered ONE (20:54)
[2023-04-23] MEDS ORDERED: ePHEDrine SULFATE 25 MG/5 ML(5MG/ML) SYRINGE As Ordered ONE (20:54)
[2023-04-23] MEDS ORDERED: MORPHINE PRES-FREE INJ 10 MG/10 ML VIAL As Ordered ONE (20:54)
[2023-04-23] MEDS ORDERED: OXYTOCIN 30UNITS IN 0.9% NaCl 500ML IV BAG As Ordered ONE (20:55)
[2023-04-23] MEDS ORDERED: ONDANSETRON 4MG 2ML VIAL As Ordered ONE (21:58)
[2023-04-23] MEDS ORDERED: BICITRA 30ML SOLN UDC PO ONE (22:00)
[2023-04-23] MEDS ORDERED: ceFAZolin SOD 2 GM in IV 1 EA IV ONE (22:00)
[2023-04-23 22:11] LABS: URIC ACID 6.6 MG/DL (3.1-7.8)
[2023-04-23] MEDS ORDERED: KETOROLAC 60MG 2ML VIAL As Ordered ONE (22:19)
[2023-04-23 22:25] LABS: CORD GAS ABE A -3.4; CORD GAS HCO3 A 24.5 MMOL/L; CORD GAS HCO3 V 22.3 MMOL/L; CORD GAS O2 SAT V 79.5 %; CORD GAS PCO2 A 57.1 mmHg; CORD GAS PCO2 V 50.4 mmHg; CORD GAS PH A 7.251 UNITS; CORD GAS PH V 7.264 UNITS; CORD GAS PO2 A 12.7 mmHg; CORD GAS PO2 V 41.6 mmHg; CORD GAS SBC A 20.1 MMOL/L; CORD GAS TCO2 A 26.3 MMOL/L; CORD GAS TCO2 V 23.9 MMOL/L
[2023-04-23] MEDS ORDERED: SIMETHICONE 80MG CHEW TAB PO PRN (22:45)
[2023-04-23] MEDS ORDERED: MOM 30ML SUSPENSION UDC PO PRN (22:45)
[2023-04-23] MEDS ORDERED: RHOGAM 300MCG (1500IU) INJ IM SCH (22:45)
[2023-04-23] MEDS ORDERED: PERCOCET 5MG/325MG TAB PO PRN ×2 (22:45)
[2023-04-23] MEDS ORDERED: ONDANSETRON 4MG 2ML VIAL IV PRN (22:45)
[2023-04-23] MEDS ORDERED: oxyCODONE 5MG TAB PO PRN (23:05)
[2023-04-23] MEDS ORDERED: COLA100C5 PO (23:18)
[2023-04-23] MEDS ORDERED: ACET-683 PO (23:18)
[2023-04-23] MEDS ORDERED: OXYC-517 PO (23:18)
[2023-04-23] MEDS ORDERED: IBUP80TA PO (23:18)
[2023-04-24] VITALS (31 sets, daily range): BP systolic 121–185; BP diastolic 71–106; TEMP 97–98.6; O2SAT 97–100
[2023-04-24] MEDS ORDERED: UNRESOLVED PATIENT OWN MED ORDER XX SCH (00:01)
[2023-04-24] MEDS: ACETAMINOPHEN 500 MG TAB PO SCH ×4 (01:44→17:32)
[2023-04-24] MEDS ORDERED: LABETALOL 100MG/20ML VIAL IV STA (04:18)
[2023-04-24] MEDS: KETOROLAC 30 MG/ML 1ML VIAL IV SCH ×3 (05:14→16:49)
[2023-04-24] MEDS: MAG Sulf (OBGYN) 20GM/500ML 20,000 MG in IV 1 EA IV SCH ×2 (06:10→15:42)
[2023-04-24 06:30] LABS: HEMATOCRIT 29.3 % (36.0-47.0); HEMOGLOBIN 10.1 g/dl (12.0-15.5); MEAN CORPUSCULAR HEMOGLOBIN 31.8 pg (27.0-33.0); MEAN CORPUSCULAR HGB CONC 34.5 g/dl (32.0-36.5); MEAN CORPUSCULAR VOLUME 92.1 fl (80.0-96.0); PLATELET COUNT, AUTOMATED 170 10^3/uL (150-450); RED BLOOD COUNT 3.18 10^6/uL (4.00-5.40); WHITE BLOOD COUNT 7.2 10^3/uL (4.0-10.0)
[2023-04-24] MEDS: DOCUSATE SODIUM 100MG CAPSULE PO SCH ×2 (07:55→20:29)
[2023-04-24] MEDS: PRENATAL VITAMINS CHEWABLE TABLET PO SCH (07:56)
[2023-04-24] MEDS ORDERED: diphenhydrAMINE 50MG/ML VIAL IV ONE (09:05)
[2023-04-24] MEDS: ENOXAPARIN 40MG/0.4ML SYRINGE (J1650 PER 10MG) SC SCH (09:06)
[2023-04-24] MEDS: LABETALOL 200 MG TAB PO SCH ×2 (12:15→20:02)
[2023-04-24] MEDS: LR 1,000 ML IV SCH ×2 (13:24→22:00)
[2023-04-24] MEDS: PREZCOBIX PO SCH (20:31)
[2023-04-24] MEDS: GENVOYA PO SCH (20:32)
[2023-04-25] VITALS (14 sets, daily range): BP systolic 102–192; BP diastolic 52–110; O2SAT 99–100
[2023-04-25] MEDS: IBUPROFEN 600MG TAB PO SCH ×4 (00:46→18:31)
[2023-04-25] MEDS: ACETAMINOPHEN 500 MG TAB PO SCH ×5 (00:46→23:43)
[2023-04-25] MEDS ORDERED: IBUPROFEN 800 MG TAB PO SCH (01:00)
[2023-04-25] MEDS: DOCUSATE SODIUM 100MG CAPSULE PO SCH ×2 (08:06→21:09)
[2023-04-25] MEDS: PRENATAL VITAMINS CHEWABLE TABLET PO SCH (08:07)
[2023-04-25] MEDS: LABETALOL 200 MG TAB PO SCH ×2 (08:07)
[2023-04-25] MEDS: ENOXAPARIN 40MG/0.4ML SYRINGE (J1650 PER 10MG) SC SCH (08:08)
[2023-04-25] MEDS ORDERED: MEASLES,MUMPS,RUBELLA VACCINE INJ (MMR-II) SC.IMMUN ONE (09:00)
[2023-04-25] MEDS: LR 1,000 ML IV SCH (11:46)
[2023-04-25] MEDS ORDERED: NIFEdipine 10 MG CAP PO STA ×2 (18:44→19:28)
[2023-04-25] MEDS: oxyCODONE 5MG TAB PO PRN (18:55)
[2023-04-25] MEDS: PREZCOBIX PO SCH (21:10)
[2023-04-25] MEDS: GENVOYA PO SCH (21:11)
[2023-04-26] MEDS: IBUPROFEN 600MG TAB PO SCH ×3 (01:19→12:07)
[2023-04-26] MEDS: oxyCODONE 5MG TAB PO PRN (01:25)
[2023-04-26 02:00] VITALS: BP 123/76; O2SAT 98
[2023-04-26 06:07] VITALS: BP 139/89; O2SAT 99
[2023-04-26] MEDS: ACETAMINOPHEN 500 MG TAB PO SCH ×2 (06:09→12:07)
[2023-04-26 07:12] LABS: HEMATOCRIT 35.4 % (36.0-47.0); HEMOGLOBIN 12.1 g/dl (12.0-15.5); MEAN CORPUSCULAR HEMOGLOBIN 32.3 pg (27.0-33.0); MEAN CORPUSCULAR HGB CONC 34.2 g/dl (32.0-36.5); MEAN CORPUSCULAR VOLUME 94.4 fl (80.0-96.0); PLATELET COUNT, AUTOMATED 226 10^3/uL (150-450); RED BLOOD COUNT 3.75 10^6/uL (4.00-5.40); WHITE BLOOD COUNT 5.6 10^3/uL (4.0-10.0)
[2023-04-26 08:30] VITALS: BP 134/87
[2023-04-26] MEDS: DOCUSATE SODIUM 100MG CAPSULE PO SCH (08:30)
[2023-04-26] MEDS: PRENATAL VITAMINS CHEWABLE TABLET PO SCH (08:30)
[2023-04-26] MEDS: ENOXAPARIN 40MG/0.4ML SYRINGE (J1650 PER 10MG) SC SCH (08:31)
[2023-04-26] MEDS: LABETALOL 200 MG TAB PO SCH (08:31)
[2023-04-26 10:00] VITALS: BP 120/70; O2SAT 100
[2023-04-26] MEDS ORDERED: LABE20TAB PO (12:31)
== END 2023-04-26 14:40 | disposition home or self-care (01) | DRG 540 ==
LOC: M LDI 18:16 → M OBS 04-24 00:55
PROVIDERS: ADMIT Advanced Practice Midwife; ATTEND Obstetrics & Gynecology
PROC: 10D00Z1 Extraction of Products of Conception, Low, Open Approach (ICD-10-PCS; principal; 2023-04-23 20:50)
DX: O14.14 Severe pre-eclampsia complicating childbirth (principal); O98.72 Human immunodeficiency virus [HIV] disease complicating childbirth; O34.211 Maternal care for low transverse scar from previous cesarean delivery; O99.344 Other mental disorders complicating childbirth; F32.A Depression, unspecified; F41.9 Anxiety disorder, unspecified; Z79.899 Other long term (current) drug therapy; O76 Abnormality in fetal heart rate and rhythm complicating labor and delivery; Z37.0 Single live birth; Z3A.39 39 weeks gestation of pregnancy; Z21 Asymptomatic human immunodeficiency virus [HIV] infection status

== ENCOUNTER → 2023-04-23 | Outpatient (CLI) | payer OTHER ==
[~2023-04-23] MED LIST changes: +ACET-683 PO; +COLA100C5 PO; -GENV1TAB; +GENV1TAB PO; +IBUP80TA PO; +OXYC-517 PO; +PRENTAB9 PO
[2023-04-23 13:56] LABS: HEMATOCRIT 34.7 % (36.0-47.0); MEAN CORPUSCULAR HEMOGLOBIN 32.8 pg (27.0-33.0); MEAN CORPUSCULAR HGB CONC 34.6 g/dl (32.0-36.5); MEAN CORPUSCULAR VOLUME 94.8 fl (80.0-96.0); PLATELET COUNT, AUTOMATED 212 10^3/uL (150-450); RED BLOOD COUNT 3.66 10^6/uL (4.00-5.40); WHITE BLOOD COUNT 3.8 10^3/uL (4.0-10.0)
[2023-04-23 14:21] LABS: ALBUMIN 2.2 G/DL (3.2-5.2); ALKALINE PHOSPHATASE 138 U/L (46-116); ALT/SGPT 16 U/L (7.0-40); AST/SGOT 19 U/L (<34); BILIRUBIN,TOTAL 0.5 MG/DL (0.3-1.2); BLOOD UREA NITROGEN 13 MG/DL (9-23); CALCIUM LEVEL 8.5 MG/DL (8.5-10.1); CARBON DIOXIDE LEVEL 24 MMOL/L (20-31); CHLORIDE LEVEL 107 MMOL/L (98-107); CREATININE FOR GFR 0.69 MG/DL (0.55-1.30); CREATININE,RANDOM URINE 210.4 MG/DL; GLOMERULAR FILTRATION RATE > 60.0 (>58); GLUCOSE, FASTING 83 MG/DL (60-100); POTASSIUM SERUM 4.1 MMOL/L (3.5-5.1); SODIUM LEVEL 139 MMOL/L (136-145); TOTAL PROTEIN 5.4 G/DL (5.7-8.2)
[2023-04-23 14:23] LABS: TOTAL PROTEIN,RANDOM URINE 815.6 MG/DL (0.0-14.0)
== END ==
LOC: M PLALAB 09:00
PROVIDERS: ATTEND Obstetrics & Gynecology
DX: O16.3 Unspecified maternal hypertension, third trimester (principal)

== ENCOUNTER 2023-04-29 19:48 | Emergency (ER) | payer OTHER ==
[~2023-04-29] VITALS: Ht 167.6 cm; Wt 87.3 kg
[~2023-04-29 19:48] MED LIST changes: +ACET-683 PO; +COLA100C5 PO; +IBUP80TA PO; +LABE20TAB PO; +OXYC-517 PO; +PRENTAB9 PO
[2023-04-29] MEDS ORDERED: ANUSOL HC CREAM 30GM TOP STA (21:59)
[2023-04-29] MEDS ORDERED: ONDANSETRON 4MG 2ML VIAL IV ONE (22:00)
[2023-04-29] MEDS ORDERED: MORPHINE 4 MG/ML 1ML VIAL IV PRN (22:00)
[2023-04-29 22:04] LABS: BASO % 0.7 % (0.0-1.0); EOS # 0.1 10^3/uL (0.0-0.5); EOS % 2.1 % (0.0-3.0); HEMATOCRIT 31.2 % (36.0-47.0); HEMOGLOBIN 10.8 g/dl (12.0-15.5); LYMPH # 1.6 10^3/uL (1.5-5.0); MEAN CORPUSCULAR HEMOGLOBIN 32.2 pg (27.0-33.0); MEAN CORPUSCULAR HGB CONC 34.6 g/dl (32.0-36.5); MEAN CORPUSCULAR VOLUME 93.1 fl (80.0-96.0); MONO # 0.5 10^3/uL (0.0-0.8); MONO % 8.5 % (2.0-8.0); NEUTROPHILS # 3.5 10^3/uL (1.5-8.5); NEUTROPHILS % 60.2 % (36.0-66.0); PLATELET COUNT, AUTOMATED 278 10^3/uL (150-450); RED BLOOD COUNT 3.35 10^6/uL (4.00-5.40); WHITE BLOOD COUNT 5.8 10^3/uL (4.0-10.0)
[2023-04-29 22:27] LABS: ALBUMIN 2.6 G/DL (3.2-5.2); ALKALINE PHOSPHATASE 103 U/L (46-116); ALT/SGPT 56 U/L (7.0-40); AST/SGOT 34 U/L (<34); BILIRUBIN,DIRECT < 0.1 MG/DL (<0.4); BILIRUBIN,TOTAL 0.5 MG/DL (0.3-1.2); BLOOD UREA NITROGEN 17 MG/DL (9-23); CALCIUM LEVEL 8.8 MG/DL (8.5-10.1); CARBON DIOXIDE LEVEL 25 MMOL/L (20-31); CHLORIDE LEVEL 105 MMOL/L (98-107); CREATININE FOR GFR 0.71 MG/DL (0.55-1.30); GLOMERULAR FILTRATION RATE > 60.0 (>58); GLUCOSE, FASTING 89 MG/DL (60-100); SODIUM LEVEL 138 MMOL/L (136-145); TOTAL PROTEIN 6.5 G/DL (5.7-8.2)
[2023-04-29 22:47] LABS: APPEARANCE, URINE CLOUDY (CLEAR); BACTERIA, URINE AUTO 2+ (NEGATIVE); BILIRUBIN, URINE AUTO NEGATIVE (NEGATIVE); BLOOD, URINE BLOOD 3+ (NEGATIVE); COLOR, URINE YELLOW (YELLOW); GLUCOSE, URINE (UA) AUTO NEGATIVE (NEGATIVE); KETONE, URINE AUTO NEGATIVE (NEGATIVE); LEUKOCYTE ESTERASE, URINE AUTO 3+ (NEGATIVE); MUCUS, URINE SMALL (NEGATIVE); NITRITE, URINE AUTO NEGATIVE (NEGATIVE); PROTEIN, URINE AUTO 2+ mg/dL (NEGATIVE); RBC, URINE AUTO 26 /HPF (0-3); SPECIFIC GRAVITY URINE AUTO 1.006 (1.002-1.035); SQUAMOUS EPITHELIAL CELL UR AU 5 /HPF (0-6); UROBILINOGEN, URINE AUTO 0.2 mg/dL (0.0-2.0); WBC, URINE AUTO TNTC /HPF (0-3)
[2023-04-29] MEDS ORDERED: EMLA CREAM 5GM TUBE (LIDOCAINE/PRILOCAINE) TOP ONE (23:05)
[2023-04-30] MEDS ORDERED: LIDO30CR18 TOP (00:10)
[2023-04-30] MEDS ORDERED: ANUS2.5C2 TOP (00:10)
[2023-04-30] MEDS ORDERED: HYDR-3713 PO (00:10)
[2023-04-30] MEDS ORDERED: MACR100C43 PO (00:14)
[2023-04-30 00:34] VITALS: BP 164/89; TEMP 98.7; O2SAT 99
== END 2023-04-30 00:36 | disposition home or self-care (01) ==
LOC: M ED 19:48
DX: O86.20 Urinary tract infection following delivery, unspecified (principal); O13.5 Gestational [pregnancy-induced] hypertension without significant proteinuria, complicating the puerperium; O87.2 Hemorrhoids in the puerperium; Z79.899 Other long term (current) drug therapy
CPT/HCPCS: 36415; 80048; 80076; 81001; 85025; 93005; 93041; 94760; 96374; 96375; 99285; J2405

== ENCOUNTER → 2023-11-20 | Outpatient (CLI) | payer OTHER ==
[~2023-11-20] MED LIST changes: +ANUS2.5C2 TOP; +HYDR-3713 PO; +LIDO30CR18 TOP; +MACR100C43 PO
[2023-11-20 15:01] LABS: ALBUMIN 3.9 G/DL (3.2-5.2); ALKALINE PHOSPHATASE 58 U/L (46-116); ALT/SGPT 26 U/L (7.0-40); AST/SGOT 10 U/L (<34); BILIRUBIN,TOTAL 0.7 MG/DL (0.3-1.2); BLOOD UREA NITROGEN 15 MG/DL (9-23); CALCIUM LEVEL 9.4 MG/DL (8.5-10.1); CARBON DIOXIDE LEVEL 32 MMOL/L (20-31); CHLORIDE LEVEL 102 MMOL/L (98-107); CREATININE FOR GFR 0.65 MG/DL (0.55-1.30); GLOMERULAR FILTRATION RATE > 60.0 (>58); GLUCOSE, FASTING 93 MG/DL (60-100); POTASSIUM SERUM 4.1 MMOL/L (3.5-5.1); SODIUM LEVEL 134 MMOL/L (136-145); TOTAL PROTEIN 7.5 G/DL (5.7-8.2)
[2023-11-20 15:09] LABS: HEPATITIS B SURFACE ANTIBODY POSITIVE (POSITIVE)
[2023-11-21 18:12] LABS: %CD4 Pos Lymphs 34.8 % (30.8-58.5); ABS Eosinophils 0.1 x10E3/uL (0.0-0.4); ABS Monocytes 0.3 x10E3/uL (0.1-0.9); ABS Neutophils 1.3 x10E3/uL (1.4-7.0); Abs CD4 Helper 696 /uL (359-1519); Abs CD8 Suppres 1000 /uL (109-897); Eosinophils 1 % (Not Estab.); HCT 36.8 % (34.0-46.6); HEPATITIS B CORE ANTIBODY IGG Negative (Negative); HGB 12.4 g/dL (11.1-15.9); HIV-1 RNA PCR QUANT 2 LC550285 <20 copies/mL (.); Immature Grans 0 % (Not Estab.); Lymphocytes 54 % (Not Estab.); MCH 31.2 pg (26.6-33.0); MCHC 33.7 g/dL (31.5-35.7); MCV 93 fL (79-97); Monocytes 8 % (Not Estab.); Neutrophils 36 % (Not Estab.); Platelets 212 x10E3/uL (150-450); RBC 3.97 x10E6/uL (3.77-5.28); RDW 11.5 % (11.7-15.4); WBC 3.7 x10E3/uL (3.4-10.8)
== END ==
LOC: M PLALAB 11:25
PROVIDERS: ATTEND Internal Medicine Infectious Disease
DX: B20 Human immunodeficiency virus [HIV] disease (principal); Z11.59 Encounter for screening for other viral diseases

== ENCOUNTER → 2024-05-26 | Outpatient (CLI) | payer MEDICAID, OTHER ==
[2024-05-26 15:46] LABS: ALBUMIN 3.9 G/DL (3.2-5.2); ALKALINE PHOSPHATASE 56 U/L (46-116); ALT/SGPT 13 U/L (7.0-40); AST/SGOT 10 U/L (<34); BILIRUBIN,TOTAL 0.7 MG/DL (0.3-1.2); BLOOD UREA NITROGEN 10 MG/DL (9-23); CALCIUM LEVEL 9.7 MG/DL (8.5-10.1); CARBON DIOXIDE LEVEL 29 MMOL/L (20-31); CHLORIDE LEVEL 105 MMOL/L (98-107); CHOLESTEROL LEVEL 250 MG/DL (<200); CREATININE FOR GFR 0.66 MG/DL (0.55-1.30); GLOMERULAR FILTRATION RATE > 60.0 (>58); GLUCOSE, FASTING 90 MG/DL (60-100); HDL CHOLESTEROL 56.8 MG/DL (>40); LDL CHOLESTEROL 155.4 MG/DL (<100); NON-HDL-C 193.2 MG/DL; POTASSIUM SERUM 4.4 MMOL/L (3.5-5.1); SODIUM LEVEL 138 MMOL/L (136-145); TOTAL PROTEIN 7.6 G/DL (5.7-8.2); TRIGLYCERIDES LEVEL 189 MG/DL (<150)
[2024-05-26 15:48] LABS: THYROID STIMULATING HORMONE 1.636 uIU/ML (0.55-4.78)
[2024-05-27 13:07] LABS: % CD4+ LYMPHS 40.9 % (30.8-58.5); ABSOLUTE CD4 HELPER 818 /uL (359-1519); BASOPHILS 1 % (Not Estab.); EOSINOPHILS 2 % (Not Estab.); EOSINOPHILS ABSOLUTE 0.1 x10E3/uL (0.0-0.4); HCT 37.8 % (34.0-46.6); HGB 12.4 g/dL (11.1-15.9); LYMPHOCYTES 50 % (Not Estab.); MCH 30.6 pg (26.6-33.0); MCHC 32.8 g/dL (31.5-35.7); MCV 93 fL (79-97); MONOCYTES 7 % (Not Estab.); MONOCYTES ABSOLUTE 0.3 x10E3/uL (0.1-0.9); NEUTROPHILS 40 % (Not Estab.); NEUTROPHILS ABSOLUTE 1.6 x10E3/uL (1.4-7.0); PLT 241 x10E3/uL (150-450); RBC 4.05 x10E6/uL (3.77-5.28); RDW 11.4 % (11.7-15.4)
[2024-05-27 16:51] LABS: HIV-1 RNA PCR QUANT 2 <20 DETECTED copies/mL (NOT DETECTED); HIV-1 RNA PCR QUANT 3 <1.30 DETECTED (NOT DETECTED)
== END ==
LOC: M PLALAB 13:08
PROVIDERS: ATTEND Internal Medicine Infectious Disease
DX: B20 Human immunodeficiency virus [HIV] disease (principal)

== ENCOUNTER → 2025-08-03 | Outpatient (CLI) | payer MEDICAID, OTHER ==
[2025-08-03 15:04] LABS: BASO # 0.0 10^3/uL (0.0-0.2); BASO % 0.6 % (0.0-1.0); EOS # 0.0 10^3/uL (0.0-0.5); EOS % 1.2 % (0.0-3.0); LYMPH # 1.8 10^3/uL (1.5-5.0); LYMPH % 52.9 % (24.0-44.0); MONO # 0.3 10^3/uL (0.0-0.8); MONO % 7.8 % (2.0-8.0); NEUTROPHILS # 1.3 10^3/uL (1.5-8.5); NEUTROPHILS % 37.5 % (36.0-66.0); PLATELET COUNT, AUTOMATED 270 10^3/uL (150-450)
[2025-08-03 15:22] LABS: ALT/SGPT 13 U/L (7.0-40); AST/SGOT 15 U/L (<34); CALCIUM LEVEL 8.6 MG/DL (8.5-10.1); CARBON DIOXIDE LEVEL 29 MMOL/L (20-31); CHLORIDE LEVEL 105 MMOL/L (98-107); CHOLESTEROL LEVEL 248 MG/DL (<200); CHOLESTEROL RISK RATIO 4.15 (<5); CREATININE FOR GFR 0.81 MG/DL (0.55-1.30); GLOMERULAR FILTRATION RATE > 90.0 (>58); LDL CHOLESTEROL 170.1 MG/DL (<100); NON-HDL-C 188.3 MG/DL; POTASSIUM SERUM 3.9 MMOL/L (3.5-5.1); SODIUM LEVEL 141 MMOL/L (136-145); TRIGLYCERIDES LEVEL 91 MG/DL (<150)
== END ==
LOC: M PLALAB 10:00
PROVIDERS: ATTEND Internal Medicine Infectious Disease
DX: B20 Human immunodeficiency virus [HIV] disease (principal)